=== PATIENT | female | born 1975 | race Caucasian/White ===

== ENCOUNTER 2019-12-12 07:53 | Outpatient (CLI) | payer BC, SELFPAY ==
--- NOTE | ~2019-12-12 | MM_ITS ---
EXAMINATION: MM screening [facility] BI w maryjane HISTORY: Screening mammogram TECHNIQUE: Craniocaudal and mediolateral oblique 3-D tomosynthesis images were obtained and synthetic 2-D images were generated. CAD analysis was submitted and interpreted. COMPARISON: 10/26/2018, 10/16/2017, 05/01/2017, 10/21/2016, 10/11/2016 BREAST PARENCHYMAL COMPOSITION: The breasts are extremely dense, which lowers the sensitivity of mamm ography. FINDINGS: Scattered benign-appearing calcifications are present. There is no evidence of suspicious m ass, calcification, or architectural distortion to suggest malignancy in either breast. There has bee n no suspicious interval change. IMPRESSION: 1. No mammographic evidence of malignancy. 2. Recommend routine screening mammography in one year. Two Reviewed, dictated and finalized at location A.
== END 2019-12-12 07:54 | disposition home or self-care (01) ==
LOC: ANHIMG 07:57
PROVIDERS: PCP Family Medicine Adolescent Medicine; Visit Provider Obstetrics & Gynecology
DX: Z12.31 Encounter for screening mammogram for malignant neoplasm of breast (principal)
CPT/HCPCS: 77063; 77067

== ENCOUNTER → 2020-08-26 11:04 | Outpatient (CLI) | payer BC, SELFPAY ==
--- NOTE | ~2020-08-26 | XR_ITS ---
EXAMINATION: XR ribs LT 2V w CXR 2V INDICATION: Left rib pain TECHNIQUE: PA and lateral views of the chest and 3 views of the left ribs were obtained. COMPARISON: 09/19/2010 FINDINGS: The lungs are free of acute opacities. There is no pleural effusion or pneumothorax. The ca rdiomediastinal silhouette is normal. The visualized bones and soft tissues are unremarkable. No disp laced rib fracture is identified. IMPRESSION: 1. No acute cardiopulmonary abnormality or evidence of displaced rib fracture. Reviewed, dictated and finalized at location A. [employer]
== END ==
PROVIDERS: PCP Family Medicine Adolescent Medicine; Visit Provider Physician Assistant
DX: R07.81 Pleurodynia (principal)
CPT/HCPCS: 71046; 71100

== ENCOUNTER → 2021-02-10 11:28 | Outpatient (CLI) | payer BC, SELFPAY ==
--- NOTE | ~2021-02-10 | MM_ITS ---
EXAMINATION: MM screening [facility] BI w maryjane HISTORY: Screening mammogram TECHNIQUE: Craniocaudal and mediolateral oblique 3-D tomosynthesis images were obtained and synthetic 2-D images were generated. CAD analysis was submitted and interpreted. COMPARISON: 12/12/2019, 10/26/2018, 10/16/2017 bilateral digital screening mammogram examinations BREAST PARENCHYMAL COMPOSITION: The breasts are extremely dense, which lowers the sensitivity of mamm ography. FINDINGS: Magnification views are recommended for subtle microcalcifications noted deep in the upper central right breast. Otherwise there is no evidence of suspicious mass, calcification, or architectural distortion to sugg est malignancy in either breast. There has been no other suspicious interval change. IMPRESSION: 1. Indeterminate microcalcifications in the posterior upper right breast 2. Diagnostic right mammogram with magnification views is recommended BI-RADS Category 0: Incomplete: Needs additional imaging evaluation. Reviewed, dictated and finalized at location A.
== END ==
PROVIDERS: PCP Family Medicine Adolescent Medicine; Visit Provider Student in an Organized Health Care Education/Training Program
DX: Z12.31 Encounter for screening mammogram for malignant neoplasm of breast (principal); R92.8 Other abnormal and inconclusive findings on diagnostic imaging of breast
CPT/HCPCS: 77063; 77067

== ENCOUNTER 2021-03-09 13:14 | Outpatient (CLI) | payer BC, SELFPAY ==
--- NOTE | ~2021-03-09 | MM_ITS ---
EXAMINATION: MM diagnostic mammo unilat RT HISTORY: Indeterminate right breast calcifications TECHNIQUE: Magnification views of the right breast were performed. CAD analysis was submitted and int erpreted. COMPARISON: Prior mammograms dating back to 10/21/2016 BREAST PARENCHYMAL COMPOSITION: The breasts are extremely dense, which lowers the sensitivity of mamm ography. FINDINGS: There are grouped round calcifications in the posterior third of the upper breast at the 12 :00 location 8 cm from the nipple. With magnification views there has been no suspicious interval simon nge when compared to prior mammograms. IMPRESSION: 1. No mammographic evidence of malignancy. 2. Recommend routine screening mammography in one year. BI-RADS Category 2: Benign finding(s). Reviewed, dictated and finalized at location A.
== END 2021-03-09 13:15 | disposition home or self-care (01) ==
LOC: ANHIMG 13:17
PROVIDERS: PCP Family Medicine Adolescent Medicine; Visit Provider Student in an Organized Health Care Education/Training Program
DX: R92.8 Other abnormal and inconclusive findings on diagnostic imaging of breast (principal)
CPT/HCPCS: 77065

== ENCOUNTER 2021-04-28 18:27 | Emergency (ER) | payer BC, SELFPAY ==
--- NOTE | ~2021-04-28 | XR_ITS ---
EXAMINATION: XR elbow RT min 3V DATE: 04/28/2021 18:56 INDICATION: Right elbow injury and pain. TECHNIQUE: 4 views of right elbow were obtained. COMPARISON: None. FINDINGS: Bone alignment is normal. There is a fracture of coronoid process of proximal ulna in near- anatomic alignment. Joint spaces are normal. There is an elbow joint effusion. IMPRESSION: 1. Nondisplaced fracture of coronoid process of proximal ulna. 2. Elbow joint effusion. Reviewed, dictated and finalized at location A.
[2021-04-28 18:36] VITALS: BP 121/84; PULSE 66; RESP 14; TEMP 36.4; O2SAT 99
--- NOTE | 2021-04-28 20:33 | ED.UPPEXIN ---
HPI - Extremity Injury (Upper) General Chief Complaint: Extremity Injury, Upper Stated Complaint: R ELBOW PAIN S/P FALL Time Seen by Provider: 04/28/21 20:33 Source: patient Mode of arrival: ambulatory Limitations: no limitations History of Present Illness HPI narrative: The patient is a 45 yo female who presents for evaluation following a ground level fall. Patient fell backwards onto her right elbow. Pt with right shoulder and right hip pain. Also with moderate right elbow pain. Exacerbated with movement. No head trauma or LOC. No abrasion or laceration. Patient has been ambulatory. No numbness or weakness. Related Data Home Medications Medication Instructions Recorded Confirmed biotin 5 mg capsule 5 mg PO DAILY 05/22/20 calcium carbonate 500 mg calcium 500 mg PO DAILY 05/22/20 (1,250 mg) chewable tablet pantoprazole 20 mg tablet,delayed 20 mg PO QAM 05/22/20 release trazodone 50 mg tablet 50 mg PO BID 05/22/20 Allergies Allergy/AdvReac Type Severity Reaction Status Date / Time Penicillins Allergy Mild Hives Verified 04/28/21 20:33 Review of Systems Review of Systems: CONSTITUTIONAL: Denies fever CARDIOVASCULAR: Denies chest pain RESPIRATORY: Denies cough or dyspnea. GASTROINTESTINAL: Denies abdominal pain SKIN: Denies rash MUSCULOSKELETAL: Denies back pain, reports right elbow pain, right shoulder pain, right hip pain NEUROLOGIC: Denies headache PMFSH Past Medical History Medical History Acid reflux Anxiety Endometriosis Irritable bowel Vaginal delivery x 2 Surgical History Surgical History H/O exploratory laparotomy History of abdominal hysterectomy [place] teeth removed Family History Family History Grandparent Blood clot in vein Cerebrovascular accident Diabetes mellitus Mother Hypertension Diabetes mellitus Father Diabetes mellitus Sibling Sarcoma of pelvis Other Acute myocardial infarction Social History Social History Smoking status: Former smoker Alcohol intake: current Substance use: never Exam Narrative: GENERAL: Awake, alert, conversant HEAD: Normocephalic, atraumatic. EYES: PERRLA and EOMI. ENT: Nares clear, no rhinorrhea or epistaxis. Mucous membranes moist. NECK: Supple. CHEST: No respiratory distress, breathing even and non labored HEART: Regular rate, sinus rhythm ABDOMEN:Non distended, non tender EXTREMITIES: Right shoulder: Full ROM of the right shoulder. Decreased ROM at the right elbow. Normal ROM at the right wrist. Intact sensation m/u/r nerve distribution. Radial pulse 2+. No significant edema or ecchymoses. SKIN: Warm, dry, no rash. NEURO:No focal deficits. Alert and oriented x3 Course Vital Signs Vital signs: Vital Signs Temperature 36.4 C 04/28/21 18:36 Pulse Rate 66 04/28/21 18:36 Respiratory Rate 14 04/28/21 18:36 Blood Pressure 121/84 04/28/21 18:36 Pulse Oximetry 99 04/28/21 18:36 Temperature 36.6 C 04/28/21 20:39 Pulse Rate 69 04/28/21 20:39 Respiratory Rate 18 04/28/21 20:39 Blood Pressure 144/90 H 04/28/21 20:39 Pulse Oximetry 100 04/28/21 20:39 Procedures Orthopedic Splinting/Casting Injury #1: Splinting/Casting Date: 04/28/21 Splinting/Casting Time: 21:50 Side: right Upper Extremity Injury Location: elbow Upper Extremity Immobilizer: sling/shoulder immobilizer and posterior splint Pre-Procedure Neuro Vascular Exam: normal Post-Procedure Neuro Vascular Exam: normal MDM - Extremity Injury (Upper) MDM Narrative Medical decision making narrative: Patient presenting for evaluation of ground-level fall, right elbow pain. Patient neurovascularly intact. X-ray reveals nondisplaced fracture of the right coronoid process of
[2021-04-28 20:39] VITALS: BP 144/90; PULSE 69; RESP 18; TEMP 36.6; O2SAT 100
--- NOTE | 2021-04-28 20:55 | PC.NURSE ---
XRAY informed me that patient refused hip and shoulder xray. Med Student Ravi christian
[2021-04-28 22:01] VITALS: BP 122/82; PULSE 67; RESP 15; TEMP 37.2; O2SAT 99
== END 2021-04-28 22:00 | disposition home or self-care (01) ==
PROVIDERS: Emergency Provider Emergency Medicine; PCP Family Medicine Adolescent Medicine
DX: S52.044A Nondisplaced fracture of coronoid process of right ulna, initial encounter for closed fracture (principal); K21.9 Gastro-esophageal reflux disease without esophagitis; N80.9 Endometriosis, unspecified; K58.9 Irritable bowel syndrome, unspecified; Z87.891 Personal history of nicotine dependence; W18.30XA Fall on same level, unspecified, initial encounter
CPT/HCPCS: 29105; 73080; 99284; A4565

== ENCOUNTER 2021-09-24 12:40 | Outpatient (CLI) | payer BC, SELFPAY ==
--- NOTE | ~2021-09-24 | MR_ITS ---
EXAMINATION: MR shoulder LT wo con DATE: 09/24/2021 13:44 INDICATION: Left shoulder pain TECHNIQUE: Magnetic resonance imaging (MRI) of the left shoulder was performed without intravenous co ntrast. Sequences included axial PD-weighted FS FSE, coronal oblique PD-weighted FS FSE, coronal obli que T2-weighted FS FSE, sagittal PD-weighted FS FSE, and sagittal T1-weighted SE. COMPARISON: Left shoulder radiographs dated 07/07/2021 FINDINGS: Coracoacromial arch: The acromion undersurface is curved in morphology (type II). The coracoacromial ligament is normal. M inimal acromioclavicular osteoarthritis. Rotator cuff: The supraspinatus, infraspinatus and teres minor tendons are normal. The subscapularis tendon is norm al. Normal rotator cuff muscle bulk and signal. Biceps tendon, glenoid labrum and glenohumeral cartilage: Long head of the biceps tendon is normal. There is an oblique tear extending across the 4:00 position of the anterior glenoid labrum best appreciated on sagittal series 6, image 14 and axial series 2, i mages 12 and 13. Glenohumeral cartilage is normal. Fluid: Physiologic amount of fluid in the glenohumeral joint and biceps tendon sheath. No loose osteochondr al bodies. No abnormal fluid signal in the subacromial/subdeltoid bursa to suggest bursitis. Bones/other: No fracture or pathologic marrow replacing process. There is thickening and mild increased signal of the anterior inferior glenohumeral ligament and glenohumeral capsule at the axillary recess. This can be seen with either adhesive capsulitis which is a clinical diagnosis or scarring related to prior p artial tear. IMPRESSION: 1. Tear at the 4:00 position of the anterior glenoid labrum. 2. Thickening of the anterior-inferior glenohumeral ligament and glenohumeral capsule at the axillary recess which could be related to scarring related to chronic partial tear but could also be seen in the setting of adhesive capsulitis which is a clinical diagnosis. Reviewed, dictated and finalized at location A. [employer] IMPRESSION: 1. Tear at the 4:00 position of the anterior glenoid labrum. 2. Thickening of the anterior-inferior glenohumeral ligament and glenohumeral c apsule at the axillary recess which could be related to scarring related to chr onic partial tear but could also be seen in the setting of adhesive capsulitis which is a clinical diagnosis.
--- NOTE | ~2021-09-24 | US_ITS ---
EXAMINATION: US pelvic complete EXAM DATE: 09/24/2021 14:01 INDICATION: Pelvic pain . Hysterectomy. TECHNIQUE: Pelvic transabdominal sonogram was performed. There are multiple grayscale and Doppler im ages available for interpretation. There is no prior study for comparison. FINDINGS: Uterus not identified, reportedly patient is status post hysterectomy. No pelvic mass ident ified. Right ovary is identified and morphologically normal measuring 1.6 x 1.4 x 1.3 cm. No evidence of free pelvic fluid. IMPRESSION: 1. Unremarkable right ovary. Reviewed, dictated and finalized at location A. ET [employer]
== END 2021-09-24 12:41 | disposition home or self-care (01) ==
PROVIDERS: PCP Family Medicine Adolescent Medicine; Visit Provider Family Medicine Adolescent Medicine
DX: M25.512 Pain in left shoulder (principal); R10.2 Pelvic and perineal pain; S43.492A Other sprain of left shoulder joint, initial encounter
CPT/HCPCS: 73221; 76856

== ENCOUNTER 2022-01-14 00:55 | Day surgery (SDC) | payer BC, SELFPAY ==
[2022-01-14 08:40] VITALS: BP 115/85; PULSE 107; RESP 18; TEMP 36.8; O2SAT 100; BMI 21.7
[2022-01-14] MEDS: LACTATED RINGERS 1,000 ML 150 ML IV CONT (08:52)
--- NOTE | 2022-01-14 09:10 | WPDANESEPPF ---
Anes - Initial Pre Proc Eval Procedure: Operation Date: 01/14/22 09:30 Proposed Procedures p Esophagogastroduodenoscopy & Colonoscopy - Heber Long MD Date/Time: 01/14/22 09:10 Surgeon: Heber Long MD Pre Op Diagnosis: GERD, change in bowel habits Patient Data Age: 46 Gender: F Height: 1.57 m Weight: 54 kg Last Vital Signs Temp 98.2 F 01/14/22 08:40 Pulse 107 H 01/14/22 08:40 Resp 18 01/14/22 08:40 BP 115/85 01/14/22 08:40 Pulse Ox 100 01/14/22 08:40 O2 Del Method Room Air 01/14/22 08:40 Allergies Allergy/AdvReac Type Severity Reaction Status Date / Time Penicillins Allergy Mild Hives Verified 12/30/21 14:16 Home Medications Medication Instructions Recorded Confirmed Type buspirone 10 mg tablet 10 mg PO BID PRN anxiety #60 tabs 11/18/21 12/30/21 Rx trazodone 50 mg tablet 50 mg PO QHS #30 tabs 11/29/21 12/30/21 Rx sodium sul 1.479 gram-potas ch See Rx Instructions PO PER PKG DIR 12/10/21 12/30/21 Rx 0.188 gram-magnes sul 0.225 gram #24 tabs tablet (Sutab) pantoprazole 40 mg tablet,delayed 40 mg PO DAILY 12/30/21 12/30/21 History release Patient hx anesthesia problems: none Family hx anesthesia problems: none Results Review: All pre-operative results and documents have been reviewed as part of the pre-operative evaluation. [facility] Past Medical History Medical History (Updated 12/09/21 @ 13:33 by Brenda Osuna APRN) Acid reflux Anxiety Endometriosis Generalized abdominal pain Irritable bowel Left shoulder pain Normal colonoscopy 10/28 Sleep disorder Subacromial bursitis of left shoulder joint Superior glenoid labrum lesion of left shoulder, initial encounter Tendonitis of left rotator cuff Vaginal delivery x 2 Surgical History Surgical History H/O exploratory laparotomy History of abdominal hysterectomy with left oophorectomy [place] teeth removed Family History Family History Grandparent Blood clot in vein Cerebrovascular accident Diabetes mellitus Mother Hypertension Diabetes mellitus Hypothyroidism Father Diabetes mellitus Sibling Sarcoma of pelvis Other Acute myocardial infarction Neuropathy Social History Social History Smoking status: Former smoker Tobacco type: cigarettes Second hand tobacco smoke exposure: No Alcohol intake: current Drinks per week: 1 Substance use: never Substance use type: does not use Living arrangements: with family 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 [employer] Gender identity (if verbalized by the patient): Female Sexual Orientation (if Verbalized by the Patient): Straight or Heterosexual Spiritual care concerns: No Agree to blood products: Yes Anes - Eval Final PreProcedure Day of Procedure 01/14/22 09:10 Patient weight: normal Heart: regular rate and rhythm Lungs: clear to auscultation Airway: Mallampati scale class II Neurological: alert and oriented Last oral intake: >/= 8 hours ASA classification: II Emergent: no Anesthetic plan: proceed Anesthesia type and monitoring: general GIVS and standard monitoring Results Review: All pre-operative results and documents have been reviewed as part of the pre-operative evaluation. Informed Consent: The patient's anesthetic plan and its attendant risks and benefits were discussed with the patient/family/POA. Questions were solicited and answers provided to the satisfaction of the patient/family/POA.
--- NOTE | 2022-01-14 09:22 | PM.IMHP ---
H&P: HPI History of Present Illness Date/Time: 01/14/22 09:22 Chief Complaint: Dyspepsia and change in bowel habits Narrative: this is a 46-year-old white female patient who presents for EGD and colonoscopy. Patient reports a emt intermediate history of acid reflux. Patient reports her symptoms of bubles in her chest. She complains indigestion after dietary indiscretion. She notes this with many different types of food including Custard, red sauce, popcorn etc.. Patient also notices some irregular bowel habits. Usually after drinking. She states her family history is that her mother had a stomach tumor, . patient presents today for colonoscopy an EGD to assess more thoroughly. Recently seen by the GI office endoscopy requested. Patient has been maintained on pantoprazole with no certain response to symptoms. Review of Systems Review of Systems: Review of systems noncontributory. [facility] Past Medical History Medical History (Updated 01/14/22 @ 09:25 by Heber Long MD) Acid reflux Anxiety Endometriosis Generalized abdominal pain Irritable bowel Left shoulder pain Normal colonoscopy 10/28 Sleep disorder Subacromial bursitis of left shoulder joint Superior glenoid labrum lesion of left shoulder, initial encounter Tendonitis of left rotator cuff Vaginal delivery x 2 Surgical History Surgical History H/O exploratory laparotomy History of abdominal hysterectomy with left oophorectomy [place] teeth removed Family History Family History Grandparent Blood clot in vein Cerebrovascular accident Diabetes mellitus Mother Hypertension Diabetes mellitus Hypothyroidism Father Diabetes mellitus Sibling Sarcoma of pelvis Other Acute myocardial infarction Neuropathy Social History Social History Smoking status: Former smoker Tobacco type: cigarettes Second hand tobacco smoke exposure: No Alcohol intake: current Drinks per week: 1 Substance use: never Substance use type: does not use Living arrangements: with family 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 [employer] Gender identity (if verbalized by the patient): Female Sexual Orientation (if Verbalized by the Patient): Straight or Heterosexual Spiritual care concerns: No Agree to blood products: Yes Meds Home Medications and Allergies Home Medications Medication Instructions Recorded Confirmed Type buspirone 10 mg tablet 10 mg PO BID PRN anxiety #60 tabs 11/18/21 12/30/21 Rx trazodone 50 mg tablet 50 mg PO QHS #30 tabs 11/29/21 12/30/21 Rx sodium sul 1.479 gram-potas ch See Rx Instructions PO PER PKG DIR 12/10/21 12/30/21 Rx 0.188 gram-magnes sul 0.225 gram #24 tabs tablet (Sutab) pantoprazole 40 mg tablet,delayed 40 mg PO DAILY 12/30/21 12/30/21 History release Allergies Allergy/AdvReac Type Severity Reaction Status Date / Time Penicillins Allergy Mild Hives Verified 12/30/21 14:16 Vital Signs Vital Signs - 24 hr 01/14/22 08:40 Temperature 98.2 F Pulse Rate 107 H Respiratory Rate 18 Blood Pressure 115/85 Pulse Oximetry 100 Oxygen Delivery Room Air Exam Narrative: Physical exam reveals patient to be alert. Vital signs stable. HEENT exam is unremarkable. Patient is anicteric. Lungs are clear to auscultation and percussion. Heart is without murmur or extra sounds. Abdominal exam bowel sounds present soft nontender with no organomegaly. Digital external rectal exam is normal. Assessment and Plan Assessment and plan (1) Dyspepsia: Code(s): R10.13 - Epigastric pain Status: Acute Assessment and Plan: Patient with dyspepsia may represent acid reflux. It appears she may not be given a good response from pantoprazole. EGD is requested. Plan is for a bland diet further
--- NOTE | 2022-01-14 09:51 | SUR.OPER ---
EGD ENDED AT 945, COLONOSCOPY BEGAN AT 949.
[2022-01-14 10:06] VITALS: BP 98/65; PULSE 84; RESP 25; O2SAT 100
[2022-01-14 10:16] VITALS: BP 97/77; PULSE 75; RESP 18; O2SAT 100
[2022-01-14 10:26] VITALS: BP 118/72; PULSE 67; RESP 19; O2SAT 98
== END 2022-01-14 10:35 | disposition home or self-care (01) ==
PROVIDERS: PCP Family Medicine Adolescent Medicine; Visit Provider Internal Medicine Gastroenterology
PROC: 0DJ08ZZ Inspection of Upper Intestinal Tract, Via Natural or Artificial Opening Endoscopic (ICD-10-PCS; CPT 43235; principal; 2022-01-14 09:30)
DX: R19.7 Diarrhea, unspecified (principal); D12.5 Benign neoplasm of sigmoid colon; R19.4 Change in bowel habit; K64.8 Other hemorrhoids; R10.13 Epigastric pain; K21.9 Gastro-esophageal reflux disease without esophagitis; F41.9 Anxiety disorder, unspecified; N80.9 Endometriosis, unspecified; K58.9 Irritable bowel syndrome, unspecified; G47.9 Sleep disorder, unspecified; M75.52 Bursitis of left shoulder; Z87.891 Personal history of nicotine dependence
CPT/HCPCS: 45385; 45380; 43239; 87081; 88305; J2704; J7120

== ENCOUNTER 2022-03-07 07:01 | Outpatient (CLI) | payer BC, SELFPAY ==
--- NOTE | ~2022-03-07 | MM_ITS ---
EXAMINATION: MM screening [facility] BI w maryjane HISTORY: Screening TECHNIQUE: Craniocaudal and mediolateral oblique 3-D tomosynthesis images were obtained and synthetic 2-D images were generated. CAD analysis was submitted and interpreted. COMPARISON: Comparison to multiple prior studies sequentially, with oldest reviewed study dated 04/16. BREAST PARENCHYMAL COMPOSITION: The breasts are heterogeneously dense, which may obscure small masses FINDINGS: Stable benign-appearing bilateral breast calcifications. There is no evidence of suspicious mass, calcification, or architectural distortion to suggest malignancy in either breast. There has b een no suspicious interval change. IMPRESSION: 1. No mammographic evidence of malignancy. 2. Recommend routine screening mammography in one year. BI-RADS Category 2: Benign finding(s). Reviewed, dictated and finalized at location A.
== END 2022-03-07 07:02 | disposition home or self-care (01) ==
LOC: ANHIMG 07:04
PROVIDERS: PCP Family Medicine Adolescent Medicine; Visit Provider Obstetrics & Gynecology
DX: Z12.31 Encounter for screening mammogram for malignant neoplasm of breast (principal)
CPT/HCPCS: 77063; 77067

== ENCOUNTER 2022-11-07 09:10 | Outpatient (CLI) | payer BC, SELFPAY ==
--- NOTE | ~2022-11-07 | US_ITS ---
EXAMINATION: US right upper quadrant DATE: 11/07/2022 09:47 INDICATION: Right upper quadrant pain TECHNIQUE: Multiple grayscale and Doppler ultrasound images of the abdomen were obtained. COMPARISON: None available FINDINGS: The head and body of the pancreas are normal. The pancreatic tail is obscured by bowel gas. The liver is normal with normal echogenicity and echotexture. No surface nodularity. Normal hepatope ivoyr flow in the main portal vein. The gallbladder is normal with no abnormal wall thickening, pericho lecystic fluid or stones. The normal common bile duct measures 4 mm. There was no sonographic Barnes sign. IMPRESSION: 1. Normal sonographic study of the gallbladder. Reviewed, dictated and finalized at location B.
== END 2022-11-07 09:11 | disposition home or self-care (01) ==
PROVIDERS: PCP Family Medicine Adolescent Medicine; Visit Provider Family Medicine Adolescent Medicine
DX: R10.11 Right upper quadrant pain (principal)
CPT/HCPCS: 76705

== ENCOUNTER 2023-02-08 14:04 | Outpatient (CLI) | payer BC, SELFPAY ==
--- NOTE | 2023-02-14 20:26 | P.PCNHOL_ITS ---
Holter/Event Monitor Holter/Event Monitor Date of procedure: 02/14/23 Holter/Event Procedure: 48 Hr Holter Monitor Diagnosis: Palpitations Indications: 47-year-old female palpitations Image/Tracing Quality: Good Finding: The patient was monitored for 48 hours. The underlying rhythm was sinus with an average heart rate of 78 beats per minute (range 53-145 BPM). Four PVCs were seen. There were 13 PACs, 2 atrial couplets, and 3 runs of SVT the longest of which was 6 beats. There was no atrial fibrillation, ventricular tachycardia, heart block or pauses. The patient is admitted 12 rhythm strips primarily for symptoms of palpitations. These were associated with sinus rhythm with heart rates in the 60s to 80s, and once with sinus tachycardia with a heart rate of 118 ppm. Conclusion: Fairly unremarkable Holter monitor. Rare PVCs, PACs, and 3 brief runs of SVT the longest of which was 6 beats. Patient's symptoms of palpitations were associated with sinus rhythm and sinus tachycardia.
== END 2023-02-08 14:05 | disposition home or self-care (01) ==
PROVIDERS: PCP Family Medicine Adolescent Medicine; Visit Provider Family Medicine Adolescent Medicine
DX: R00.2 Palpitations (principal)
CPT/HCPCS: 93225; 93226

== ENCOUNTER → 2023-05-17 11:48 | Outpatient (CLI) | payer BC, SELFPAY ==
--- NOTE | ~2023-05-17 | MM_ITS ---
EXAMINATION: MM screening [facility] BI w maryjane HISTORY: Screening mammogram TECHNIQUE: Craniocaudal and mediolateral oblique 3-D tomosynthesis images were obtained and synthetic 2-D images were generated. CAD analysis was submitted and interpreted. COMPARISON: 03/07/2022, 03/09/2021, 02/10/2021 BREAST PARENCHYMAL COMPOSITION: The breasts are heterogeneously dense, which may obscure small masses . FINDINGS: Scattered benign-appearing calcifications are present. No suspicious mass, calcification, o r architectural distortion are identified in either breast to suggest malignancy. There has been no s uspicious interval change. IMPRESSION: 1. No mammographic evidence of malignancy. 2. Recommend routine screening mammography in one year. BI-RADS Category 2: Benign finding(s). Reviewed, dictated and finalized at location A.
== END ==
PROVIDERS: PCP Family Medicine Adolescent Medicine; Visit Provider Obstetrics & Gynecology
DX: Z12.31 Encounter for screening mammogram for malignant neoplasm of breast (principal)
CPT/HCPCS: 77063; 77067

== ENCOUNTER 2023-08-19 07:38 | Outpatient (CLI) | payer BC, SELFPAY ==
[2023-08-19 08:35] LABS: Hematocrit 41.4 % (37.0-47.0); Hemoglobin 12.7 g/dL (12.0-15.0); Mean Corpuscular HGB Conc 30.7 g/dl (32-36); Mean Corpuscular Hemoglobin 29.2 pg (26-34); Mean Corpuscular Volume 95.2 fl (80-100); Mean Platelet Volume 9.4 fl (7.4-10.4); Platelet Count Result 287 k/mm3 (150-375); Red Blood Count 4.35 M/mm3 (4.2-5.4); Red Cell Distribution Width 13.2 % (11.5-14.5); White Blood Count 5.9 K/mm3 (4.5-10.0)
[2023-08-19 08:47] LABS: Alanine Aminotransferase 22 U/L (6-35); Albumin Level 4.2 g/dL (3.5-5.1); Alkaline Phosphatase 74 U/L (38-126); Anion Gap 5 mmol/L (8-16); Aspartate Amino Transferase 24 U/L (14-36); Bilirubin,Total 0.6 mg/dL (0.2-1.3); Blood Urea Nitrogen 18 mg/dL (7-17); Calcium 9.4 mg/dL (8.4-10.2); Carbon Dioxide 26 mmol/L (22-30); Chloride 108 mmol/L (98-107); Cholesterol 208 mg/dL (0-200); Estimated Glomerular Filt Rate > 60; Glucose 98 mg/dL (65-110); HDL Direct 67 mg/dL; Potassium 3.8 mmol/L (3.4-5.0); Sodium 139 mmol/L (137-145); Triglycerides 69 mg/dL (<150)
[2023-08-19 08:57] LABS: LDL Cholesterol Direct 107 mg/dL
[2023-08-19 09:19] LABS: Appearance Urine Cloudy (Clear); Bacteria Urine None Seen /hpf; Bilirubin Urine Negative (Negative); Blood Urine Trace (Negative); Color Urine Yellow (Yellow); Glucose Urine UA Negative (Negative); Ketones Urine Trace mg/dL (Negative); Leukocyte Esterase Ur Negative LEU/UL (Negative); Nitrate Urine Negative (Negative); Protein Urine Negative (Negative); RBC Urine 0-2 /hpf (0-2); Specific Grav Ur 1.025 (1.001-1.035); Squamous Epithelial Cell Urine Few /hpf (Few); Urobilinogen Urine 0.2 mg/dL (<2.0); WBC Urine 0-5 /hpf
[2023-08-19 09:21] LABS: Add Urine Microscopic? YES
[2023-08-19 10:32] LABS: Vitamin D 25 Hydroxy 36.3 ng/mL
== END 2023-08-19 07:39 | disposition home or self-care (01) ==
PROVIDERS: PCP Family Medicine Adolescent Medicine; Visit Provider Registered Nurse
DX: Z79.899 Other long term (current) drug therapy (principal)
CPT/HCPCS: 36415; 80053; 80061; 81001; 82306; 84443; 85027

== ENCOUNTER 2023-10-19 10:40 | Outpatient (CLI) | payer BC, SELFPAY ==
--- NOTE | ~2023-10-19 | US_ITS ---
EXAMINATION: US venous doppler [facility] DATE: 10/19/2023 11:12 INDICATION: Right lower limb pain and swelling TECHNIQUE: Grayscale ultrasound images without and with compression and Doppler ultrasound images of the bilateral lower extremity veins were obtained. COMPARISON: None. FINDINGS: The visualized portions of right common femoral vein, profunda (deep) femoral vein, femoral vein, pop liteal vein, posterior tibial veins, peroneal veins, gastrocnemius vein and greater saphenous vein ou tflow are patent. The visualized portions of left common femoral vein, profunda femoral vein, femoral vein, popliteal v ein, posterior tibial veins, peroneal veins, gastrocnemius vein and greater saphenous vein outflow ar e patent. IMPRESSION: 1. No deep venous thrombosis in either lower limb. Reviewed, dictated and finalized at location A.
== END 2023-10-19 10:41 ==
LOC: MICIMG 10:41
PROVIDERS: PCP Family Medicine Adolescent Medicine
DX: M79.89 Other specified soft tissue disorders (principal)
CPT/HCPCS: 93970

== ENCOUNTER 2024-03-25 10:41 | Outpatient (CLI) | payer BC, SELFPAY ==
--- NOTE | ~2024-03-25 | XR_ITS ---
XR shoulder RT min 2V Ordering provider: Raymond Almanza MD History: . M77.8 - Other enthesopathies, not elsewhere classified . Comparison: None. FINDINGS: BONES: No acute fracture or dislocation. JOINT SPACES: The acromioclavicular joint is normal. The glenohumeral joint is normal. SOFT TISSUES: Normal. IMPRESSION: No acute osseous abnormality right shoulder. Reviewed, dictated and finalized at location A.
== END 2024-03-25 10:42 | disposition home or self-care (01) ==
LOC: MICIMG 10:42
PROVIDERS: PCP Family Medicine Adolescent Medicine; Visit Provider Family Medicine Adolescent Medicine
DX: M77.8 Other enthesopathies, not elsewhere classified (principal)
CPT/HCPCS: 73030

== ENCOUNTER 2024-04-10 09:55 | Outpatient (CLI) | payer BC, SELFPAY ==
--- NOTE | ~2024-04-10 | MR_ITS ---
EXAMINATION: MR shoulder RT wo con DATE: 04/10/2024 10:36 INDICATION: Posterior right shoulder pain when lifting the arm and limited range of motion TECHNIQUE: Magnetic resonance imaging (MRI) of the right shoulder was performed without intravenous c ontrast. Sequences included axial PD-weighted FS FSE, coronal oblique PD-weighted FS FSE, coronal obl ique T2-weighted FS FSE, sagittal PD-weighted FS FSE, and sagittal T1-weighted SE. COMPARISON: Right shoulder radiographs dated 04/04/2024 FINDINGS: Coracoacromial arch: The acromion undersurface is curved in morphology with anterior hook (type III). The coracoacromial l igament is normal. Minimal acromioclavicular osteoarthritis. Rotator cuff: Minimal supraspinatus and displaced tendinopathy without tear. The subscapularis and infraspinatus te ndons are normal. Normal rotator cuff muscle bulk and signal. Biceps tendon, glenoid labrum and glenohumeral cartilage: Long head of the biceps tendon is normal. There is a tear at the base of the 7:00 position of the pos terior inferior glenoid labrum. There is additional linear tear extending into the substance of the 2 :00-3:00 position of the anterior labrum. Glenohumeral cartilage is normal. Fluid: Physiologic amount of fluid in the glenohumeral joint and biceps tendon sheath. No loose osteochondr al bodies. Mild increased fluid signal in the subacromial/subdeltoid bursa consistent with mild bursi tis. Bones/other: Normal marrow signal with no edema, fracture or abnormal marrow replacing process. There is increased soft tissue replacing the normal replacing the normal T1 hyperintense fat signal at the rotator cuff interval which can be a finding of adhesive capsulitis which is a clinical diagnosis. IMPRESSION: 1. Small tears of the anterior and posterior inferior glenoid labrum. 2. Minimal supraspinatus and infraspinatus tendinopathy without tear. 3. Thickened soft tissue at the rotator interval which can be a finding of adhesive capsulitis which is a clinical diagnosis. 4. Mild subacromial/subdeltoid bursitis. Reviewed, dictated and finalized at location A. IMPRESSION: 1. Small tears of the anterior and posterior inferior glenoid labrum. 2. Minimal supraspinatus and infraspinatus tendinopathy without tear. 3. Thickened soft tissue at the rotator interval which can be a finding of adhe sive capsulitis which is a clinical diagnosis. 4. Mild subacromial/subdeltoid bursitis.
== END 2024-04-10 09:56 | disposition home or self-care (01) ==
PROVIDERS: PCP Family Medicine Adolescent Medicine; Visit Provider Family Medicine Adolescent Medicine
DX: M77.8 Other enthesopathies, not elsewhere classified (principal); M75.101 Unspecified rotator cuff tear or rupture of right shoulder, not specified as traumatic; S43.491D Other sprain of right shoulder joint, subsequent encounter; X58.XXXD Exposure to other specified factors, subsequent encounter
CPT/HCPCS: 73221

== ENCOUNTER 2024-07-01 08:55 | Outpatient (CLI) | payer BC, SELFPAY ==
--- NOTE | ~2024-07-01 | MM_ITS ---
EXAMINATION: MM screening daniel BI w maryjane HISTORY: Screening TECHNIQUE: Craniocaudal and mediolateral oblique 3-D tomosynthesis images were obtained and synthetic 2-D images were generated. CAD analysis was submitted and interpreted. COMPARISON: Comparison to multiple prior studies sequentially, with oldest reviewed study dated 10/26. BREAST PARENCHYMAL COMPOSITION: Dense: The breasts are heterogeneously dense, which may obscure small masses FINDINGS: There is no evidence of suspicious mass, calcification, or architectural distortion to sugg est malignancy in either breast. There has been no suspicious interval change. IMPRESSION: 1. No mammographic evidence of malignancy. 2. Recommend routine screening mammography in one year. BI-RADS Category 1: Negative Reviewed, dictated and finalized at location B. P FARM WORKER
--- OUTSIDE RECORDS SUMMARY | 2024-07-07 21:51 | XMS_ITS | Encounter Summary ---
Author Organization [facility] Address [address] [place] [address]. [place] [phone] Care Team Providers Care Wind Turbine Mechanical Engineer Name Role Phone Unavailable Primary Care Provider Unavailabl e Encounter Details Date Type Department Care Team (Latest Contact Info) Description 09/19/[address] [facility] Social History Tobacco Use Types Packs/Day Years Used Date Smoking Tobacco: Never Assessed Comments Unknown Sex and Gender Information Value Date Recorded Sex Assigned at Not on file Legal Sex Female 6:49 PM CDT Gender Identity Not on file Sexual Orientation Not on file documented as of this encounter Plan of Treatment Not on file documented as of this encounter Visit Diagnoses Not on filedocumented in this encounter
--- OUTSIDE RECORDS SUMMARY | 2024-07-07 21:51 | XMS_ITS | Encounter Summary ---
Author Organization [facility] Address [address] [place] [address]. [place], [place] [id number] [place] [address] Care Team Providers Care Official Greeter Name Role Phone Unavailable Primary Care Provider Unavailabl e Encounter Details Date Type Department Care Team (Latest Contact Info) Description 08/01/2013 Abstract [facility] Medical Group Social History Tobacco Use Types Packs/Day Years Used Date Smoking Tobacco: Never Assessed Comments Unknown Sex and Gender Information Value Date Recorded Sex Assigned at Not on file Legal Sex Female 6:49 PM CDT Gender Identity Not on file Sexual Orientation Not on file documented as of this encounter Progress Notes * Hernandez Hart Md, MD - 08/01/2013 2:56 PM CST Message Recorded as Task Date: 07/31/2013 01:02 PM, Created By: Jessie Lowry Task Name: Medical Complaint Callback Assigned To: [facility] Team Gunjan Regarding Patient: Nila Valentino, Status: Active Comment: Jessie Lowry - 31 Jul 2013 1:02 PM TASK CREATED Caller: Self; Medical Complaint; (Day) Pt c/o urinary frequency, blood in urine, pressure when urinating since 10AM today. No history of UTI's. What should she do? Call pt. Harvey Hollins - 31 Jul 2013 1:56 PM TASK REASSIGNED: Previously Assigned To Harvey Hollins DS bid x 7 Jose Quinones - 31 Jul 2013 1:58 PM TASK EDITED lmtc- need pharmacy Message: patient already went to another physician and got antibiotics Signatures Electronically signed by : Sarah Beebe, ; Aug 01 2013 2:57PM (Author) ICAN HISTORY PROFESSOR documented in this encounter Plan of Treatment Not on file documented as of this encounter Visit Diagnoses Not on filedocumented in this encounter
--- OUTSIDE RECORDS SUMMARY | 2024-07-07 21:51 | XMS_ITS | Encounter Summary ---
Author Organization [facility] Address [address] [place] [address]. [place] [phone] Care Team Providers Care Frame Operator Name Role Phone Unavailable Primary Care Provider Unavailabl e Encounter Details Date Type Department Care Team (Latest Contact Info) Description 09/20/2011 Abstract [facility] Medical Group Social History Tobacco [...]
--- OUTSIDE RECORDS SUMMARY | 2024-07-07 21:51 | XMS_ITS | Encounter Summary ---
Author Organization [facility] Address [address] [place] [address]. [place], [place] [address] [place] [address] Care Team Providers Care Court Clerk Name Role Phone Unavailable Primary Care Provider Unavailabl e Encounter Details Date Type Department Care Team (Latest Contact Info) Description 02/19/2013 Abstract [facility] Medical Group Harvey Hollins MD [facility] [place], [place] [phone] Social History Tobacco Use Types Packs/Day Years Used Date Smoking Tobacco: Never Assessed Comments Unknown Sex and Gender Information Value Date Recorded Sex Assigned at Not on file Legal Sex Female 6:49 PM CDT Gender Identity Not on file Sexual Orientation Not on file documented as of this encounter Plan of Treatment Not on file documented as of this encounter Procedures Procedure Name Priority Date/Time Associated Diagnosis Comments SMEAR, STAIN, WET PREP Routine 02/19/2013 12:00 AM CDT documented in this encounter Results * (ABNORMAL) SMEAR, STAIN, WET PREP (02/19/2013 12:00 AM CDT) WBC 0-5 0 - 5 /hpf [facility] TO EPIC CONVERSION RBC 0-3 0 - 3 /hpf [facility] TO EPIC CONVERSION EPI/HPF >10(A) 0 - 10 /hpf [facility] TO EPIC CONVERSION RENAL EPI [facility] T O EPIC CONVERSION OTHER CASTS (U) MED[facility] ROUP TO EPIC CONVERSION OTHER CASTS (U) [facility] ROUP TO EPIC CONVERSION CRYSTALS (U) Present(A) N/A [facility]O UP TO EPIC CONVERSION SPECIMEN TYPE Calcium Oxalate N/A [facility] TO EPIC CONVERSION MUCUS Present Not Estab. [facility] TO EPIC CONVERSION BACTERIA (U) Few None seen/Few [facility] TO EPIC CONVERSION YEAST [facility] T O EPIC CONVERSION TRICHOMONAS [facility] TO EPIC CONVERSION COMMENT [facility] T O EPIC CONVERSION 02/19/2013 02/19/2013 Narrative [facility] TO EPIC CONVERSION - 02/19/2013 9:29 PM CDT Result Communication: No patient communication needed at this time us Harvey Hollins MD MICROBIOLOGY - GENERAL ORDERAB LES Final Result [facility] TO EPIC CONVERSION documented in this encounter Visit Diagnoses Not on filedocumented in this encounter
--- OUTSIDE RECORDS SUMMARY | 2024-07-07 21:51 | XMS_ITS | Encounter Summary ---
Author Organization [facility] Address Counts include 234 beds at the [facility] [place] [address] [place] [address] Care Team Providers Care Drug Clerk Name Role Phone Unavailable Primary Care Provider Unavailabl e Encounter Details Date Type Department Care Team (Late st Contact Info) Description 11/25/2013 Abstract [facility] Medical Group Family & Internal Medicine [address] [phone] [place] [address] [place] [address] Social History Tobacco Use Types Packs/Day Years Used Date Smoking Tobacco: Never Assessed Comments Unknown Sex and Gender Information Value Date Recorded Sex Assigned at Not on file Legal Sex Female 6:49 PM CDT Gender Identity Not on file Sexual Orientation Not on file documented as of this encounter Last Filed Vital Signs Vital Sign Reading Time Taken Comments Blood Pressure 142/88 11/25/2013 11:35 AM CDT Pulse 105 11/25/2013 11:35 AM CDT Temperature - - Respiratory Rate - - Oxygen Saturation - - Inhaled Oxygen Concentration - - Weight - - Height - - Body Mass Index - - documented in this encounter Progress Notes * Harvey Hollins MD - 11/25/2013 11:00 AM CDT Reason For Visit Reason For Visit: Acute Visit Chief Complaint Chief Complaint Free Text: c/o feels enlarged lymph node on right side of neck, a little tender discuss u/s lymph node done in June History of Present Illness HPI Free Text: She has noticed a spot in her neck that is very tender. She is wondering if this is a lymph node orif there is something else going on with her neck. The area is tender to palpation. She has not noticed any other swollen lymph nodes in her neck. She denies any weight loss or weight gain. She has not had any fevers or night sweats. She does feel that the area has decreased in size over the past co uple of days, and is not as tender as it was earlier in the week. Review of Systems Focused-Female: Constitutional: Normal. ENT: normal. Cardiovascular: Normal. Respiratory: Normal. Gastrointestinal: Normal. Genitourinary: Normal. Integumentary: Normal. Musculoskeletal: Normal. Neurological: Normal. Psychiatric: Normal. Active Problems 1. Esophageal reflux (530.81) (K21.9) 2. Insomnia (780.52) (G47.00) 3. Lymphadenopathy (785.6) (R59.9) Surgical History 1. History of Hysterectomy 2. History of Intestinal Laparoscopy Family History Mother 1. Family history of Benign Essential Hypertension 2. Family history of Diabetes Mellitus (V18.0) 3. Family history of Hypothyroidism Brother 4. Family history of Cancer Social History ?? Never a smoker Current Meds 1. Omeprazole 20 MG Oral Capsule Delayed Release; TAKE 1 CAPSULE DAILY; Therapy: [id number] to (Evaluate:[id number]) Recorded 2. Zolpidem Tartrate 10 MG Oral Tablet; TAKE 1 TABLET AT BEDTIME NEEDED; Therapy: [id number] to Recorded Allergies 1. Penicillins Vitals Vital Signs [Data Includes: Current Encounter] Recorded by : Sarah Beebe at [id number] 11:35AM Temperature 97 F Heart Rate 105 Respiration 16 Systolic 142 Diastolic 88 Physical Exam Constitutional General appearance: No acute distress, well appearing and well nourished. Ears, Nose, Mouth, and Throat External inspection of ears and nose: Normal. Otoscopic examination: Tympanic membranes translucent with normal light reflex. Canals patent without erythema. Hearing: Normal. Nasal mucosa, septum, and turbinates: Normal without edema or erythema. Lips, teeth, and gums: Normal, good dentition. Oropharynx: Normal with no erythema, edema, exudate or lesions. Neck Neck: Supple, symmetric, trachea midline, no masses. Thyroid: Normal, no thyromegaly. Pulmonary Palpation of chest: Normal. Auscultation of lungs: Clear to auscultation. Lymphatic Palpation of lymph nodes in neck: No lymphadenopathy. Palpation of lymph nodes in axillae: No lymphadenopathy. Psychiatric Mood and affect: Normal. Assessment 1. Lymphadenopathy (785.6) (R59.9) Plan 1. Call if: You lose weight without trying to. Status: Complete Done: [id number] 06:38PM Ordered; For: Lymphadenopathy; Ordered By: Harvey Hollins 2. Call if: You wake out of sleep because you have been sweating heavily. Status: Complete Done: [id number] 06:38PM Ordered; For: Lymphadenopathy; Ordered By: Harvey Hollins Plan Free Text: Time spent with patient >15 minutes in direct patient care. Signatures Electronically signed by : Harvey Hollins M.D.; Nov 26 2013 6:40PM AUDIO INSTALLER (Author) O INSTALLER documented in this encounter Plan of Treatment Not on file documented as of this encounter Visit Diagnoses Not on filedocumented in this encounter
--- OUTSIDE RECORDS SUMMARY | 2024-07-07 21:51 | XMS_ITS | Encounter Summary ---
Author Organization [facility] Address [address] [place] [address]. [place] [phone] Care Team Providers Care Electrician Refinery Name Role Phone Unavailable Primary Care Provider Unavailabl e Encounter Details Date Type Department Care Team (Latest Contact Info) Description 10/17/2011 Abstract [facility] Medical Group Social History Tobacco Use Types [...]
--- OUTSIDE RECORDS SUMMARY | 2024-07-07 21:51 | XMS_ITS | Encounter Summary ---
Author Organization [facility] Address [address] [place] [address]. [place] [phone] Care Team Providers Care Dialysis Nurse Name Role Phone Unavailable Primary Care Provider Unavailabl e Encounter Details Date Type Department Care Team (Latest Contact Info) Description 04/19/2013 Abstract [facility] Medical Group Social History Tobacco Use [...]
--- OUTSIDE RECORDS SUMMARY | 2024-07-07 21:51 | XMS_ITS | Encounter Summary ---
Author Organization [facility] Address [address] [place] [address]. [place] [phone] Care Team Providers Care Commercial Real Estate Assistant Name Role Phone Unavailable Primary Care Provider Unavailabl e Encounter Details Date Type Department Care Team (Latest Contact Info) Description 11/14/2011 Abstract [facility] Medical [...]
--- OUTSIDE RECORDS SUMMARY | 2024-07-07 21:51 | XMS_ITS | Encounter Summary ---
Author Organization [facility] Address [address] [place] [address]. [place] [phone] Care Team Providers Care Custom Shoemaker Name Role Phone Unavailable Primary Care Provider Unavailabl e Encounter Details Date Type Department Care Team (Latest Contact Info) Description 06/25/2014 Abstract [facility] Medical Group Social History Tobacco Use [...]
--- OUTSIDE RECORDS SUMMARY | 2024-07-07 21:51 | XMS_ITS | Encounter Summary ---
Author Organization [facility] Address [address] [place] [address]. [place], [place] [address] [place] [address] Care Team Providers Care Damper Fitter Name Role Phone Unavailable Primary Care Provider Unavailabl e Encounter Details Date Type Department Care Team (Latest Contact Info) Description 02/18/2013 Abstract [facility] Medical Group Social History Tobacco Use Types Packs/Day Years Used Date Smoking Tobacco: Never Assessed Comments Unknown Sex and Gender Information Value Date Recorded Sex Assigned at Not on file Legal Sex Female 6:49 PM CDT Gender Identity Not on file Sexual Orientation Not on file documented as of this encounter Progress Notes * Harvey Hollins MD - 02/18/2013 2:52 PM CDT Message Recorded as Task Date: 02/18/2013 09:45 AM, Created By: Jessie Lowry Task Name: Medical Complaint Callback Assigned To: [facility] Team Gunjan Regarding Patient: Nila Valentino, Status: Active Comment: Jessie Lowry - 18 Feb 2013 9:45 AM TASK CREATED Caller: Self; Medical Complaint; (Day); Pt is requesting an order for labwork, been over a yr. Her brother had cancer and she is worried, been having swollen glands in underarm area that come and go. Do you recommend OV first or ? Call daytime # Harvey Hollins - 18 Feb 2013 12:47 PM TASK REASSIGNED: Previously Assigned To Harvey Hollins CBC, CMP, Lipids, TSH, UA Message: patient will come to office for labs Plan 1. LC-TSH [id number] Requested for: [id number] 2. LC-Urine with reflex to Culture, Routine [id number] Requested for: [id number] 3. LC-CBC With Differential/Platelet [id number] Requested for: [id number] 4. LC-Comp. Metabolic Panel ( 14 ) [id number] Requested for: [id number] 5. LC-Lipid Panel [id number] Requested for: [id number] Signatures Electronically signed by : Sarah Beebe, ; Feb 18 2013 2:54PM (Author) CAL OFFICE SUPERVISOR documented in this encounter Plan of Treatment Not on file documented as of this encounter Procedures Procedure Name Priority Date/Time Associated Diagnosis Comments URINALYSIS WI REFLEX TO CULTURE Routine 02/19/2013 12:00 AM CDT COMPREHENSIVE METABOLIC PANEL Routine 02/19/2013 12:00 AM CDT LIPID PANEL Routine 02/19/2013 12:00 AM CDT CBC W/DIFF AUTOMATED Routine 02/19/2013 12:00 AM CDT THYROID STIM HORMONE TSH Routine 02/19/2013 12:00 AM CDT documented in this encounter Results * THYROID STIM HORMONE, TSH (02/19/2013 12:00 AM CDT) TSH 4.420 0.450 - 4.500 uIU/mL [facility] TO EPIC CONVERSION 02/19/2013 02/19/2013 Narrative [facility] TO EPIC CONVERSION - 02/19/2013 9:29 PM CDT Result Communication: No patient communication needed at this time us Harvey Hollins MD LABORATORY Final Result [facility] TO EPIC CONVERSION * CBC W/DIFF AUTOMATED (02/19/2013 12:00 AM CDT) WBC 6.1 4.0 - 10.5 x10E3/uL [facility] TO EPIC CONVERSION RBC 4.29 3.77 - 5.28 x10E6/uL [facility] TO EPIC CONVERSION HEMOGLOBIN MIXED VENOUS 12.7 11.1 - 15.9 g/dL [facility] TO EPIC CONVERSION HCT 39.1 34.0 - 46.6 % [facility] TO EPIC CONVERSION MCV 91 79 - 97 fL [facility] TO EPIC CONVERSION MCH 29.6 26.6 - 33.0 pg [facility] TO EPIC CONVERSION MCHC 32.5 31.5 - 35.7 g/dL [facility] TO EPIC CONVERSION RDW 13.5 12.3 - 15.4 % [facility] TO EPIC CONVERSION PLT 283 140 - 415 x10E3/uL [facility] TO EPIC CONVERSION SEG NEUTROPHILS 53 40 - 74 % MED[facility] ROUP TO EPIC CONVERSION LYMPHOCYTES 34 14 - 46 % [facility] TO EPIC CONVERSION MONOCYTES 9 4 - 13 % [facility] T O EPIC CONVERSION EOSINOPHILS 3 0 - 7 % [facility] TO EPIC CONVERSION BASOPHILS % 1 0 - 3 % [facility] TO EPIC CONVERSION IMMATURE CELLS [facility] OUP TO EPIC CONVERSION ABS. NEUTROPHILS 3.2 1.8 - 7.8 x10E3/uL [facility] TO EPIC CONVERSION ABS. LYMPHOCYTES 2.1 0.7 - 4.5 x10E3/uL [facility] TO EPIC CONVERSION ABS. MONOCYTES 0.6 0.1 - 1.0 x10E3/uL [facility] TO EPIC CONVERSION ABS. EOSINOPHILS 0.2 0.0 - 0.4 x10E3/uL [facility] TO EPIC CONVERSION ABS. BASOPHILS 0.1 0.0 - 0.2 x10E3/uL [facility] TO EPIC CONVERSION IMMATURE CELLS 0 0 - 2 % [facility] OUP TO EPIC CONVERSION ABS. IMMATURE GRANULOCYTES 0.0 0.0 - 0.1 x10E3/uL [facility] TO EPIC CONVERSION NRBC [facility] T O EPIC CONVERSION CBC COMMENT [facility] TO EPIC CONVERSION 02/19/2013 02/19/2013 Narrative [facility] TO EPIC CONVERSION - 02/19/2013 9:29 PM CDT Result Communication: No patient communication needed at this time Harvey Hollins MD LABORATORY Final Result [facility] TO EPIC CONVERSION * LIPID PANEL (02/19/2013 12:00 AM CDT) [facility] CHOLESTEROL 172 100 - 199 mg/dL [facility] TO EPIC CONVERSION TRIGLYCERIDES 68 0 - 149 mg/dL [facility] TO EPIC CONVERSION HDL 59 >39 mg/dL [facility] T O EPIC CONVERSION Comment: Result Comment: According to ATP-III Guidelines, HDL-C >59 mg/dL is considered a negative risk factor for CHD. VLDL CALCULATION 14 5 - 40 mg/dL [facility] TO EPIC CONVERSION LDL (CALCULATED) 99 0 - 99 mg/dL [facility] TO EPIC CONVERSION COMMENT [facility] T O EPIC CONVERSION 02/19/2013 02/19/2013 Narrative [facility] TO EPIC CONVERSION - 02/19/2013 9:29 PM CDT Result Communication: No patient communication needed at this time Harvey Hollins MD LABORATORY Final Result [facility] TO EPIC CONVERSION * (ABNORMAL) URINALYSIS WI REFLEX TO CULTURE (02/19/2013 12:00 AM CDT) SPECIFIC GRAVITY (U) 1.026 1.005 - 1.030 [facility] TO EPIC CONVERSION PH ARTERIAL 6.0 5.0 - 7.5 [facility] TO EPIC CONVERSION COLOR (U) Yellow Yellow [facility] T O EPIC CONVERSION APPEARANCE SEMEN Cloudy(A) Clear [facility] TO EPIC CONVERSION LEUK ESTERASE (U) Negative Negative [facility] TO EPIC CONVERSION PROTEIN Negative Negative/Tr himanshu [facility] TO EPIC CONVERSION GLUCOSE Negative Negative [facility] T O EPIC CONVERSION REFLEX ADDED [facility] P TO EPIC CONVERSION KETONE (U) Negative Negative [facility] TO EPIC CONVERSION OCCULT BLOOD Negative Negative [facility] P TO EPIC CONVERSION BILIRUBIN (U) Negative Negative [facility] UP TO EPIC CONVERSION UROBILINOGEN 0.2 0.0 - 1.9 mg/dL [facility] TO EPIC CONVERSION NITRITES Negative Negative [facility] T O EPIC CONVERSION MICROSCOPIC DESCRIPTION [facility] TO EPIC CONVERSION Comment:Result Comment: Micr oscopic follows if indicated. MICROSCOPIC DESCRIPTION See below: [facility] TO EPIC CONVERSION COMMENT (U) [facility] TO EPIC CONVERSION Comment:Result Comment: This specimen will not reflex to a Urine Culture. 02/19/2013 02/19/2013 Narrative [facility] TO EPIC CONVERSION - 02/19/2013 9:29 PM CDT Order Comment: This specimen will not reflex to a Urine Culture. Result Communication: No patient communication needed at this time Harvey Hollins MD URINE ORDERABLES Final Result [facility] TO EPIC CONVERSION * (ABNORMAL) COMPREHENSIVE METABOLIC PANEL (02/19/2013 12:00 AM CDT) Pathologist [facility] GLUCOSE 100(H) 65 - 99 mg/dL [facility] TO EPIC CONVERSION BUN 15 6 - 20 mg/dL [facility] TO EPIC CONVERSION CREATININE S/P/B 0.82 0.57 - 1.00 mg/dL [facility] TO EPIC CONVERSION EGFR NON-AFR. AMER. 90 >59 mL/min/1.7 3 [facility] TO EPIC CONVERSION EGFR AFR. AMER. 104 >59 mL/min/1.7 3 [facility] TO EPIC CONVERSION BUN CREATININE RATIO 18 8 - 20 [facility] TO EPIC CONVERSION SODIUM S/P/B 141 134 - 144 mmol/L [facility] TO EPIC CONVERSION POTASSIUM S/P/B 3.7 3.5 - 5.2 mmol/L [facility] TO EPIC CONVERSION CHLORIDE S/P/B 105 97 - 108 mmol/L [facility] TO EPIC CONVERSION TCO2 19 19 - 28 mmol/L [facility] TO EPIC CONVERSION CALCIUM S/P/B 9.7 8.7 - 10.2 mg/dL [facility] TO EPIC CONVERSION PROTEIN 6.9 6.0 - 8.5 g/dL [facility] TO EPIC CONVERSION ALBUMIN S/P/B 4.3 3.5 - 5.5 g/dL [facility] TO EPIC CONVERSION GLOBULIN 2.6 1.5 - 4.5 g/dL [facility] TO EPIC CONVERSION A/G RATIO 1.7 1.1 - 2.5 [facility] T O EPIC CONVERSION BILIRUBIN TOTAL (FLUID) 0.4 0.0 - 1.2 mg/dL [facility] TO EPIC CONVERSION ALKALINE PHOSPHATASE S/P/B 57 42 - 107 IU/L [facility] TO EPIC CONVERSION AST 14 0 - 40 IU/L [facility] TO EPIC CONVERSION ALT 12 0 - 32 IU/L [facility] TO EPIC CONVERSION 02/19/2013 02/19/2013 Narrative [facility] TO EPIC CONVERSION - 02/19/2013 9:29 PM CDT Result Communication: No patient communication needed at this time Harvey Hollins MD LABORATORY Final Result [facility] TO EPIC CONVERSION documented in this encounter Visit Diagnoses Not on filedocumented in this encounter
--- OUTSIDE RECORDS SUMMARY | 2024-07-07 21:51 | XMS_ITS | Encounter Summary ---
Author Organization [facility] Address [address] [place] [address]. [place] [phone] Care Team Providers Care Consolidator Name Role Phone Unavailable Primary Care Provider Unavailabl e Encounter Details Date Type Department Care Team (Late st Contact Info) Description 09/20/[address] [facility] [place] [address] Lolis Sauer MD Social History Tobacco Use Types Packs/Day Years Used Date Smoking Tobacco: Never Assessed Comments Unknown Sex and Gender Information Value Date Recorded Sex Assigned at Not on file Legal Sex Female 6:49 PM CDT Gender Identity Not on file Sexual Orientation Not on file documented as of this encounter Plan of Treatment Not on file documented as of this encounter Visit Diagnoses Diagnosis Anxiety state Anxiety state, unspecified documented in this encounter
--- OUTSIDE RECORDS SUMMARY | 2024-07-07 21:51 | XMS_ITS | Encounter Summary ---
Author Organization [facility] Address [address] [place] [address]. [place] [phone] Care Team Providers Care Interlibrary Loan Services Librarian Name Role Phone Unavailable Primary Care Provider Unavailabl e Encounter Details Date Type Department Care Team (Latest Contact Info) Description 04/17/2012 Abstract [facility] Medical Group Social History Tobacco [...]
--- OUTSIDE RECORDS SUMMARY | 2024-07-07 21:51 | XMS_ITS | Encounter Summary ---
Author Organization [facility] Address [address] [place] [address]. [place] [phone] Care Team Providers Care Fiber Artist Name Role Phone Unavailable Primary Care Provider Unavailabl e Encounter Details Date Type Department Care Team (Latest Contact Info) Description 10/19/2011 Abstract [facility] Medical Group Social History Tobacco Use [...]
--- OUTSIDE RECORDS SUMMARY | 2024-07-07 21:51 | XMS_ITS | Encounter Summary ---
Author Organization [facility] Address [address] [place] [address]. [place] [phone] Care Team Providers Care Director Global Intelligence Name Role Phone Unavailable Primary Care Provider Unavailabl e Encounter Details Date Type Department Care Team (Latest Contact Info) Description 09/18/2010 Abstract [facility] Medical Group Social History Tobacco Use Types [...]
--- OUTSIDE RECORDS SUMMARY | 2024-07-07 21:51 | XMS_ITS | Encounter Summary ---
Author Organization [facility] Address [address] [place] [address]. [place] [phone] Care Team Providers Care Trailer Technician Name Role Phone Unavailable Primary Care Provider Unavailabl e Encounter Details Date Type Department Care Team (Latest Contact Info) Description 07/04/2013 Abstract [facility] Medical Group Social History Tobacco [...]
--- OUTSIDE RECORDS SUMMARY | 2024-07-07 21:51 | XMS_ITS | Encounter Summary ---
Author Organization [facility] Address [address] [place] [address]. [place] [phone] Care Team Providers Care Pipe Fitter Street Service Name Role Phone Unavailable Primary Care Provider Unavailabl e Encounter Details Date Type Department Care Team (Latest Contact Info) Description 11/18/2011 Abstract [facility] Medical Group Social History Tobacco Use Types [...]
--- OUTSIDE RECORDS SUMMARY | 2024-07-07 21:51 | XMS_ITS | Encounter Summary ---
Author Organization [facility] Address [address] [place] [address]. [place], [place] [address] [place] [address] Care Team Providers Care Building Superintendent Name Role Phone Unavailable Primary Care Provider Unavailabl e Encounter Details Date Type Department Care Team (Late st Contact Info) Description 04/18/[address] [facility] Medical [facility] Family & Internal Medicine [address] [phone] Harvey Hollins MD [address] [place] [address] Social History Tobacco Use Types Packs/Day Years Used Date Smoking Tobacco: Never Assessed Comments Unknown Sex and Gender Information Value Date Recorded Sex Assigned at Not on file Legal Sex Female 6:49 PM CDT Gender Identity Not on file Sexual Orientation Not on file documented as of this encounter Last Filed Vital Signs Vital Sign Reading Time Taken Comments Blood Pressure 138/86 04/18/2013 10:26 AM CDT Pulse 107 04/18/2013 10:26 AM CDT Temperature - - Respiratory Rate - - Oxygen Saturation - - Inhaled Oxygen Concentration - - Weight 59.4 kg (131 lb) 04/18/2013 10:26 AM CDT Height 157.5 cm (5' 2 ) 04/18/2013 10:26 AM CDT Body Mass Index 23.96 04/18/2013 10:26 AM CDT documented in this encounter Progress Notes * Harvey Hollins MD - 04/18/2013 10:15 AM CDT Reason For Visit Reason For Visit: Acute Visit Chief Complaint Chief Complaint Free Text: c/o has noticed lump under right arm, not tender and not sure how long been there History of Present Illness HPI Free Text: She has noticed some swelling under her arms. Right seems to be worse than left. The swelling seemsto come and go. She does not have any pain with the swelling. She denies any fever or chills. No weight loss or weight gain. She denies any night sweats. She is concerned about this finding because there have been many members of her family who have from cancer under the age of 40. She is not sure when this area of swelling started, she just noticed this a couple of days ago. Review of Systems Focused-Female: Constitutional: Normal. ENT: normal. Cardiovascular: Normal. Respiratory: Normal. Gastrointestinal: Normal. Genitourinary: Normal. Integumentary: Normal. Musculoskeletal: Normal. Neurological: Normal. Psychiatric: Normal. Active Problems 1. Esophageal Reflux 530.81 2. Insomnia 780.52 3. Lymphadenopathy 785.6 Surgical History 1. History of Hysterectomy V88.01 2. History of Intestinal Laparoscopy Family History 1. Maternal history of Benign Essential Hypertension 2. Maternal history of Diabetes Mellitus V18.0 3. Maternal history of Hypothyroidism 4. Fraternal history of Cancer Social History ?? Never A Smoker Current Meds 1. Omeprazole 20 MG Oral Capsule Delayed Release; TAKE 1 CAPSULE DAILY; Therapy: 23Oct2012 to (Evaluate:[id number]) 2. Zolpidem Tartrate 10 MG Oral Tablet; TAKE 1 TABLET AT BEDTIME NEEDED; Therapy: [id number] to Allergies 1. Penicillins Vitals Vital Signs [Data Includes: Current Encounter] 18Apr2013 10:26AM Heart Rate 107 Respiration 16 Systolic 138 Diastolic 86 BMI Calculated 24.11 BSA Calculated 1.59 Height 5 ft 2 in Weight 131 lb Physical Exam Constitutional General appearance: No acute distress, well appearing and well nourished. Eyes Conjunctiva and lids: No swelling, erythema or discharge. Pulmonary Respiratory effort: No increased work of breathing or signs of respiratory distress. Auscultation of lungs: Clear to auscultation. Cardiovascular Palpation of heart: Normal PMI, no thrills. Auscultation of heart: Normal rate and rhythm, normal S1 and S2, without murmurs. Abdomen Abdomen: Non-tender, no masses. Liver and spleen: No hepatomegaly or splenomegaly. Lymphatic Palpation of lymph nodes in neck: No lymphadenopathy. Skin Skin and subcutaneous tissue: Abnormal. Slight enlargement of the fatty tissue in bilateral axilla right greater than left. Psychiatric Mood and affect: Normal. Assessment 1. Lymphadenopathy 785.6 Plan Plan Free Text: Will check an ultrasound of bilateral axilla to evaluate the swelling in her axilla. We discussed that her finding are likely benign however, with her strong family history of cancers we will do further workup. Signatures Electronically signed by : Harvey Hollins M.D.; Apr 21 2013 8:22PM (Author) R POLLUTION CONTROL INSPECTOR documented in this encounter Plan of Treatment Not on file documented as of this encounter Visit Diagnoses Not on filedocumented in this encounter
--- OUTSIDE RECORDS SUMMARY | 2024-07-07 21:51 | XMS_ITS | Encounter Summary ---
Author Organization [facility] Address [address] [place] [address]. [place], [place] [address] [place] [address] Care Team Providers Care Snuff Blender Name Role Phone Unavailable Primary Care Provider Unavailabl e Encounter Details Date Type Department Care Team (Latest Contact Info) Description 06/12/[address] [facility] Medical Group Social History Tobacco Use Types Packs/Day Years Used Date Smoking Tobacco: Never Assessed Comments Unknown Sex and Gender Information Value Date Recorded Sex Assigned at Not on file Legal Sex Female 6:49 PM CDT Gender Identity Not on file Sexual Orientation Not on file documented as of this encounter Progress Notes * Hernandez Hart Md, MD - 06/12/2013 1:51 PM CST Message Recorded as Task Date: 06/12/2013 12:10 PM, Created By: Fanny Carrillo Task Name: Medical Complaint Callback Assigned To: [facility] Team Gunjan Regarding Patient: Nila Valentino, Status: Active Comment: Fanny Carrillo - 12 Jun 2013 12:10 PM TASK CREATED Caller: Self; Medical Complaint; (Mobile Phone) pt states was suppose to repeat last ultrasound in 2 months, but i don't see anything about that.....is wanting order Harvey Hollins - 12 Jun 2013 1:30 PM TASK REASSIGNED: Previously Assigned To Harvey Hollins Needs ultrasound of axilla Fanny Carrillo - 12 Jun 2013 1:50 PM TASK EDITED pt notified. order to be mailed to pt. Signatures Electronically signed by : Fanny Carrillo, ; Jun 12 2013 1:51PM (Author) ES ASSISTANT documented in this encounter Plan of Treatment Not on file documented as of this encounter Visit Diagnoses Not on filedocumented in this encounter
--- OUTSIDE RECORDS SUMMARY | 2024-07-07 21:51 | XMS_ITS | Clinical Summary ---
Author Organization [facility] Address [address] [place] [address]. [place] [phone] Care Team Providers Care Student Teaching Coordinator Name Role Phone Unavailable Primary Care Provider Unavailabl e Social History Tobacco Use Types Packs/Day Years Used Date Smoking Tobacco: Never Assessed Comments Unknown Sex and Gender Information Value Date Recorded Sex Assigned at Not on file Legal Sex Female 6:49 PM CDT Gender Identity Not on file Sexual Orientation Not on file Last Filed Vital Signs Vital Sign Reading [...] Mass Index 23.96 04/18/2013 10:26 AM CDT Plan of Treatment Health Maintenance Due Date Last Done Comments Cervical Cancer Screening Pa p Smear (Age 30 to 64) Every 3 Years 1973 Colorectal Cancer Screening Colonoscopy (10 Years) 1973 Annual Physical 1976 Hepatitis C 1991 DTaP, Tdap and Td Vaccines ( 1 - Tdap) 1992 Hepatitis B Vaccines (1 of 3 - 19+ 3-dose series) 1992 Cervical Cancer Screening Pa p with HPV Testing (Age 30 to 64) Every 5 Years 2003 Cervical Cancer Screening with HPV 2003 Mammogram Screening 2013 Zoster Vaccines (1 of 2) 2023 COVID-19 Vaccine (2023-2 5 season) 2024 Influenza Adult (#1) 2024 Meningococcal Vaccine Aged Out No elbert sujata eligible based on patient's age to complete this topic Pneumococcal Vaccine: Pediat rics (0 to 5 Years) and At-Risk Patients (6 to 64 Years) Aged Out No longer eligible b ased on patient's age to complete this topic RSV Immunizations Under 20 Months Aged Out No longer eligible based on patient's age to complete this topic
--- OUTSIDE RECORDS SUMMARY | 2024-07-07 21:51 | XMS_ITS | Encounter Summary ---
Author Organization [facility] Address [address] [place] [address]. [place], [place] [address] [place] [address] Care Team Providers Care Aircraft Instrument Engineer Name Role Phone Unavailable Primary Care Provider Unavailabl e Encounter Details Date Type Department Care Team (Latest Contact Info) Description 06/19/2014 Abstract [facility] Medical Group Social History Tobacco Use Types Packs/Day Years Used Date Smoking Tobacco: Never Assessed Comments Unknown Sex and Gender Information Value Date Recorded Sex Assigned at Not on file Legal Sex Female 6:49 PM CDT Gender Identity Not on file Sexual Orientation Not on file documented as of this encounter Progress Notes * Generic Conversion MD Ginette - 06/19/2014 11:59 AM CST Message Recorded as Task Date: 06/18/2014 11:29 AM, Created By: Fanny Saul Task Name: Medical Complaint Callback Assigned To: [facility] Team Gunjan Regarding Patient: Nila Valentino, Status: In Progress Comment: Fanny Saul - 18 Jun 2014 11:29 AM TASK CREATED Caller: Self; Medical Complaint; (Mobile Phone) is wanting you to order yearly labs to do soon. Harvey Hollins - 18 Jun 2014 2:45 PM TASK REASSIGNED: Previously Assigned To Harvey Hollins CBC, CMP, Lipids, TSH, Vit D, UA Namita Cunha - 19 Jun 2014 11:58 AM TASK IN PROGRESS Message: pt notified. lab order mailed-nk Plan 1. LC-Comp. Metabolic Panel ( CMP ) [id number] Status: Active Requested for: [id number] 2. LC-Lipid Panel [id number] Status: Active Requested for: [id number] 3. LC-TSH 847543 Status: Active Requested for: [id number] 4. LC-Urine with reflex to Culture, Routine 270765 Status: Active Requested for: [id number] 5. LC-Vitamin D, 25-Hydroxy 748009 Status: Active Requested for: [id number] 6. LC-CBC With Differential/Platelet 787125 Status: Active Requested for: [id number] Signatures Electronically signed by : Namita Cunha, ; Jun 19 2014 12:02PM HARP REGULATOR (Author) documented in this encounter Plan of Treatment Not on file documented as of this encounter Visit Diagnoses Not on filedocumented in this encounter
--- OUTSIDE RECORDS SUMMARY | 2024-07-07 21:52 | XMS_ITS | Encounter Summary ---
Author Organization [facility] Address [address] [place] [address] Care Team Providers Care Light Rail Transit Operator Name Role Phone Clinic, Pcp Primary Care Provider Unavailabl e Reason for Referral * Diagnostic Imaging (Routine) - Closed Specialty Diagnoses / Procedures Referred By Eddi t Referred To Contact Diagnoses Left shoulder pain, unspecified chronicity Procedures XR Shoulder Left 2 [place] [address] [place] [address] Phone: tel: fax: [facility] Referral ID Status Reason Start Date Expiration Date Visits Re quested Visits Authorized [id number] Closed 10/07/2021 11/06/2022 1 1 Reason for Visit * Diagnostic Imaging (Routine) - Closed Specialty Diagnoses / Procedures Referred By Eddi t Referred To Contact Diagnoses Left shoulder pain, unspecified chronicity Procedures XR Shoulder [place] 2 [place] [address] [place] [address] Phone: tel: fax: [facility] Referral ID Status Reason Start Date Expiration Date Visits Re quested Visits Authorized [id number] Closed 10/07/2021 11/06/2022 1 1 Encounter Details Date Type Department Care Team (Latest Contact Info) Description 10/13/2021 11:10 AM CDT - 10/13/2021 11:43 AM CDT Hospital Encounter [facility] [address] [place] [address] [place] [address] [place] [address] Left shoulder pain, unspecified chronicity Discharge Disposition: Discharge to home or self care Social History Tobacco Use Types Packs/Day Years Used Date Smoking Tobacco: Never Assessed Comments Unknown Sex and Gender Information Value Date Recorded Sex Assigned at Not on file Legal Sex Female 2:03 PM CDT Gender Identity Not on file Sexual Orientation Not on file documented as of this encounter Medications at Time of Discharge busPIRone (BUSPAR) 10 mg tablet buspirone 10 mg tablet TAKE 1 TABLET BY MOUTH TWICE DAILY elagolix (Orilissa) 150 mg tablet Orilissa 150 mg tablet omeprazole (PriLOSEC) 20 mg capsule omeprazole 20 mg capsule,delayed release pantoprazole DR (PROTONIX) 40 mg EC tablet pantoprazole 40 mg tablet,delayed release traZODone (DESYREL) 50 mg tablet Take 50-100 mg by mouth nightly 09/29/2021 venlafaxine XR (EFFEXOR-XR) 75 mg 24 hr capsule Take 75 mg by mouth daily 09/02/2021 documented as of this encounter Discharge Disposition Disposition Code Departure Means Destination Discharge to home or self care documented in this encounter Plan of Treatment Not on file documented as of this encounter Procedures Procedure Name Priority Date/Time Associated Diagnosis Comments XR SHOULDER LEFT 2 OR MORE VIEWS Schedule Routine, Read Routine (OP Routine) 10/13/2021 11:41 AM CDT Left shoulder pain, unspecified chronicity documented in this encounter Results * XR Shoulder Left 2 or More Views (10/13/2021 11:41 AM CDT) Anatomical Region Laterality Modality Upper Extremities, Shoulder Left Comp uted Radiography 10/13/2021 12:1 4 PM CDT Impressions 10/13/2021 12:14 PM CDT 1. ??Normal left shoulder radiographs. Electronically signed by: Morgan Baker M.D. Narrative 10/13/2021 12:14 PM CDT EXAMINATION: Left shoulder 2 or more views HISTORY: ??Left shoulder pain FINDINGS: 4 views of the left shoulder are submitted for interpretation. No prior examination is available for comparison. The glenohumeral and acromioclavicular joint spaces are normal. The alignment is anatomic. No fracture is seen. Procedure Note Morgan Baker MD - 10/13/2021 EXAMINATION: Left shoulder 2 or more views HISTORY: Left shoulder pain FINDINGS: 4 views of the left shoulder are submitted for interpretation. No prior examination is available for comparison. The glenohumeral and acromioclavicular joint spaces are normal. The alignment is anatomic. No fracture is seen. IMPRESSION: 1. Normal left shoulder radiographs. Electronically signed by: Morgan Baker M.D. us Arun Singh MD IMG XR PROCEDURES Final Res ult documented in this encounter Visit Diagnoses Diagnosis Left shoulder pain, unspecified chronicity documented in this encounter Care Teams Light Rail Transit Operator Relationship Specialty Start Date End Date Clinic, Pcp PCP - General 09/28/21 10/18/21 documented as of this encounter
--- OUTSIDE RECORDS SUMMARY | 2024-07-07 21:52 | XMS_ITS | Encounter Summary ---
Author Organization [facility] Address [address] [place] [address] Care Team Providers Care Appointment Manager Name Role Phone Clinic, Pcp Primary Care Provider Unavailabl e Encounter Details Date Type Department Care Team (Latest Contact Info) Description 10/13/2021 11:44 AM CDT - 10/13/2021 11:59 PM CDT Hospital Encounter [facility] [address] [place] [address] Discharge Disposition: Discharge to home or self [...] 150 mg tablet Orilissa 150 mg tablet meloxicam (MOBIC) 15 mg tablet Take 1 tablet (15 mg total) by mouth daily 30 tablet 10/13/2021 omeprazole (PriLOSEC) 20 mg capsule omeprazole 20 [...] Procedure Name Priority Date/Time Associated Diagnosis Comments MSK CT MR OUTSIDE REFERENCE Routine 10/13/2021 11:44 AM CDT Diagnosis unknown documented in this encounter Results * MSK CT MR Outside Reference (10/13/2021 11:44 AM CDT) Impressions [facility] - 10/13/2021 11:44 AM CDT These images are for Reference purposes only and have not been reviewed by [facility]. ??There will be no report generated by a [facility] Radiologist. Narrative [facility] - 10/13/2021 11:44 AM CDT EXAMINATION: ??Images For Reference Purposes Only us Arun Singh MD IMG CT PROCEDURES Final Res ult [facility] documented in this encounter Visit Diagnoses Not on filedocumented in this encounter Care Teams Appointment Manager Relationship Specialty Start Date End Date Clinic, Pcp PCP - General 09/28/21 10/18/21 documented as of this encounter
--- OUTSIDE RECORDS SUMMARY | 2024-07-07 21:52 | XMS_ITS | Encounter Summary ---
Author Organization [facility] Address [address] [place] [address] Care Team Providers Care Day Haul Youth Supervisor Name Role Phone Clinic, Pcp Primary Care Provider Unavailabl e Encounter Details Date Type Department Care Team (Late st Contact Info) Description 10/18/2021 Telephone [facility] [address] [place] [address] Kassi Coto DO [address] [place] [address] [place] [address] Social History Tobacco Use Types Packs/Day Years Used Date Smoking Tobacco: Never Assessed Comments Unknown Sex and Gender Information Value Date Recorded Sex Assigned at Not on file Legal Sex Female 2:03 PM CDT Gender Identity Not on file Sexual Orientation Not on file documented as of this encounter Miscellaneous Notes * Telephone Encounter - Rea Jim - 10/18/2021 2:39 PM CDT Instructed pt. To Arrive at [address] [place] [address] [place] [address] Coto on 10/19/21 at 0910. Instructed mask is required. Instructed only 1 visitor over age of 16 allowed. COVID questions addressed. To reschedule or for questions/concerns call [phone]. documented in this encounter Plan of Treatment Not on file documented as of this encounter Visit Diagnoses Not on filedocumented in this encounter Care Teams Day Haul Youth Supervisor Relationship Specialty Start Date End Date Clinic, Pcp PCP - General 09/28/21 10/18/21 documented as of this encounter
--- OUTSIDE RECORDS SUMMARY | 2024-07-07 21:52 | XMS_ITS | Clinical Summary ---
Author Organization [facility] Address [facility] [place] [address] Care Team Providers Care Ship Carpenter Name Role Phone Raymond Almanza MD Primary Care Prov ider Allergies Active Allergy Reactions Criticality Noted Date Comments Penicillins Hives Medium 10/13/2021 Medications traZODone (DESYREL) 50 mg tablet Take 50-100 mg by mouth nightly 2 Active venlafaxine XR (EFFEXOR-XR) 75 mg 24 hr capsule Take 75 mg by mouth daily 2 Active busPIRone (BUSPAR) 10 mg tablet buspirone 10 mg tablet TAKE 1 TABLET BY MOUTH TWICE DAILY Active elagolix (Orilissa) 150 mg tablet Orilissa 150 mg tablet Active omeprazole (PriLOSEC) 20 mg capsule omeprazole 20 mg capsule,delayed release Active pantoprazole DR (PROTONIX) 40 mg EC tablet pantoprazole 40 mg tablet,delayed release Active meloxicam (MOBIC) 15 mg tablet Take 1 tablet (15 mg total) by mouth daily 30 tablet 2 Active Active Problems No known active problems Surgical History Surgery Date Site/Laterality Comments FLUORO GUIDED INJECTION SHOULDER LEFT 10/19/2021 Lef t Social History Tobacco Use Types Packs/Day Years Used Date Smoking Tobacco: Never Assessed Comments Unknown Sex and Gender Information Value Date Recorded Sex Assigned at Not on file Legal Sex Female 2:03 PM CDT Gender Identity Not on file Sexual Orientation Not on file Obstetrics History Last Filed Vital Signs Vital Sign Reading Time Taken Comments Blood Pressure 121/70 10/19/2021 10:25 AM CDT Pulse 61 10/19/2021 10:25 AM CDT Temperature 36.2 ??C (97.2 ??F) 10/19/2021 10:25 AM C DT Respiratory Rate 20 10/19/2021 10:25 AM CDT Oxygen Saturation 99% 10/19/2021 10:25 AM CDT Inhaled Oxygen Concentration - - Weight 56.7 kg (125 lb) 10/13/2021 11:34 AM CDT Height 157.5 cm (5' 2 ) 10/13/2021 11:34 AM CDT Body Mass Index 22.86 10/13/2021 11:34 AM CDT Plan of Treatment Health Maintenance Due Date Last Done Comments Breast Cancer Screening-Mammogram 1973 Cervical Cancer Screening 1973 Colon Cancer Screening-Colonoscopy 1973 Depression Screening 1973 Hepatitis C Screening 1973 DTaP/Tdap/Td Vaccine (1 - Tdap) 1984 Hepatitis B Screening 1991 Regular Well Visit/Exam 18-64 1991 Zoster Vaccine (1 of 2) 2023 Covid-19 Vaccine (3 - 2023-2 5 season) 2024 10/26/2020, 10/02/2020 Influenza Vaccine (#1) 2024 Pneumococcal vaccine <65 Aged Out No longer eligible based on patient's age to complete [place] [address] [facility] Care Teams Ship Carpenter Relationship Specialty Start Date End Date Raymond Almanza MD [address] [place] [address] PCP - General 10/19/21
--- OUTSIDE RECORDS SUMMARY | 2024-07-07 21:52 | XMS_ITS | Encounter Summary ---
Author Organization [facility] Address [address] [place] [address] Phone Care Team Providers Care Digital Court Reporter Name Role Phone Raymond Almanza MD Primary Care Prov ider Reason for Referral * Procedure (Routine) - Closed Specialty Diagnoses / Procedures Referred By Eddi duncan Referred To Contact Diagnoses Adhesive capsulitis of left shoulder Procedures Large Joint Injection: L glenohumeral David Chu MD [address] [facility] [address] [address] Phone: tel: fax: [facility] (All Locations) Referral ID Status Reason Start Date Expiration Date Visits Re quested Visits Authorized [id number] Closed 04/06/2022 05/06/2023 1 1 Encounter Details Date Type Department Care Team (Late st Contact Info) Description 04/06/2022 12:45 PM CDT Office Visit [facility] Orthopaedic Surgery [address] [facility] [address] [place] [address] [place] [id number] David Chu MD [address] [facility] [address] [place] [address] Left shoulder pain, unspecified chronicity (Primary Dx); Adhesive capsulitis of left shoulder Social History Tobacco Use Types Packs/Day Years Used Date Smoking Tobacco: Never Assessed Comments Unknown Sex and Gender Information Value Date Recorded Sex Assigned at Not on file Legal Sex Female 2:03 PM CDT Gender Identity Not on file Sexual Orientation Not on file documented as of this encounter Progress Notes * David Chu MD - 04/06/2022 12:45 PM CDTAssociated Order(s): Large Joint Injection: L glenohumeral Post-Procedure Diagnose(s): Adhesive capsulitis of left shoulder NEW PATIENT VISIT CHIEF COMPLAINT Left shoulder pain HISTORY OF PRESENT ILLNESS 46-year-old right-hand dominant female with complaints of left shoulder pain and stiffness. This stems from a original injury dating back to April 2021. She developed a frozen shoulder. She saw in the spring time. She had an image guided steroid injection and went through several months of therapy. She got mostly better. She stopped the therapy in the summer time. Over the last couple months her shoulder pain is increased and she has been having a lot of pain at nighttime. She has lost range of motion as well. Patient has no known thyroid disease. She is not a diabetic. She had ahysterectomy at the age of 30 and they took 1 of her ovaries. PAST MEDICAL HISTORY She History reviewed. No pertinent past medical history. PAST SURGICAL HISTORY She Past Surgical History: Procedure Laterality Date ??? FLUORO GUIDED INJECTION SHOULDER LEFT Left 10/19/2021 INITIAL REVIEW OF MEDICATIONS She has a current medication list which includes the following prescription(s): buspirone, orilissa, meloxicam, omeprazole, pantoprazole dr, trazodone, and venlafaxine xr. DRUG ALLERGIES She is allergic to penicillins. SOCIAL HISTORY She No alcohol history on file. FAMILY HISTORY Her family history is not on file. REVIEW OF SYSTEMS Review of Systems PHYSICAL EXAMINATION Exam shows a pleasant female no acute distress. She is alert oriented and answers questions appropriately. There is no swelling or deformity around the shoulder. Her AC joint nontender. She can actively elevate today to about 110?? with scapular substitution. External rotation with arm to side is 20?? a firm capsular end feel. True glenohumeral abduction is about 50?? limited by capsular stiffness. She can reach behind her back to the lower lumbar level. She has good external rotation and abduction strength. Her biceps signs are positive. False positive abdominal compression test. REVIEW OF X-RAYS/STUDIES Previous radiographs from September were reviewed. These are normal. Previous MRI from September was reviewed. This is consistent with frozen shoulder with no significant structural damage. IMPRESSION/DIAGNOSIS Recurrent frozen shoulder a 46-year-old female. TREATMENT PLAN We discussed options both conservative and surgical. She elected for conservative management. I injected her left glenohumeral joint local anesthetic mixed with 80 mg of Kenalog. Recommend we start some physical therapy locally. I also recommended that she have her TSH level checked by her primary care doctor. Follow-up in 6 weeks Large Joint Injection: L glenohumeral Performed by: David Chu MD Authorized by: David Chu MD Supporting Documentation: Indications: Pain Procedure Details: Location: Shoulder Site: L glenohumeral Prep: patient was prepped using a clean technique Needle Size: 22 G Approach: Posterior Ultrasound guided: No Medications: 80 mg triamcinolone 40 mg/mL; 4 mL bupivacaine HCl 0.5 % (5 mg/mL); 4 mL lidocaine 10 mg/mL (1 %) David Chu MD Professor Chief, Shoulder and Elbow Service [facility] Dr Chu dictating via MModal. Drywall Stripper Helper variances may occur. documented in this encounter Plan of Treatment Not on file documented as of this encounter Procedures Procedure Name Priority Date/Time Associated Diagnosis Comments IN ARTHROCENTESIS ASPIR&/INJ MAJOR JT/BURSA W/O US Routine 04/06/2022 12:45 PM CDT Adhesive capsulitis of left shoulder documented in this encounter Results * IN ARTHROCENTESIS ASPIR&/INJ MAJOR JT/BURSA W/O US (04/06/2022 12:45 PM CDT) Narrative David Chu MD - 04/06/2022 12:45 PM CDT David Chu MD ? 04/06/2022 ??2:47 PM Large Joint Injection: L glenohumeral Performed by: David Chu MD Authorized by: David Chu MD Supporting Documentation: ??Indications: ??Pain Procedure Details: ??Location: ??Shoulder ??Site: ??L glenohumeral ??Prep: patient was prepped using a clean technique ?Needle Size: ??22 G ??Approach: ??Posterior ??Ultrasound guided: No ?Medications: ??80 mg triamcinolone 40 mg/mL; 4 mL bupivacaine HCl 0.5 % (5 mg/mL); 4 mL lidocaine 10 mg/mL (1 %) David Chu MD IN CLINIC/BEDSIDE ORDERABL ES Final Result documented in this encounter Visit Diagnoses Diagnosis Left shoulder pain, unspecified chronicity- Primary Adhesive capsulitis of left shoulder documented in this encounter Administered Medications Inactive Administered Medications - up to 3 most recent administrations Medication Order MAR Action Action Date Dose Rate Site bupivacaine HCl (MARCAINE) 0.5 % (5 mg/mL) injection 4 mL 4 mL, One-Time Injection, Starting on Mon04/06/22 at 1447, For 1 doseIndications:Adhesive capsulitis of left shoulder Given 04/06/2022 2:47 PM CDT 4 mL Left Shoulder lidocaine (XYLOCAINE) 10 mg/mL (1 %) injection 4 mL 4 mL, One-Time Injection, Starting on Mon04/06/22 at 1447, For 1 dose, Indications: Administration of Local AnesthesiaIndications:Adminis tration of Local Anesthesia Given 04/06/2022 2:47 PM CDT 4 mL Left Shoulder triamcinolone (KENALOG) 40 mg/mL injection 80 mg 80 mg, intra-articular, One-Time Injection, Starting on Mon04/06/22 at 1447, For 1 doseIndications:Adhesive capsulitis of left shoulder Given 04/06/2022 2:47 PM CDT 80 mg Left Shoulder documented in this encounter Care Teams Digital Court Reporter Relationship Specialty Start Date End Date Raymond Almanza MD [address] [place] [address] PCP - General 10/19/21 documented as of this encounter
--- OUTSIDE RECORDS SUMMARY | 2024-07-07 21:52 | XMS_ITS | Encounter Summary ---
Author Organization [facility] Address [address] [facility] [address] [facility] [address] [place] [address] Care Team Providers Care Dramatic Coach Name Role Phone Raymond Almanza MD Primary Care Prov ider Encounter Details Date Type Department Care Team (Late st Contact Info) Description 02/14/2023 Orders Only [facility] Cardiology [address] [place] [address] Taylor Bhatt MD [address] [place] [address] Social History Tobacco Use Types Packs/Day Years [...] on filedocumented in this encounter Care Teams Dramatic Coach Relationship Specialty Start Date End Date Raymond Almanza MD [address] [place] [address] PCP - General 10/19/21 documented as of this encounter
--- OUTSIDE RECORDS SUMMARY | 2024-07-07 21:52 | XMS_ITS | Encounter Summary ---
Author Organization [facility] Address [address] [place] [address] Care Team Providers Care Job Honer Name Role Phone Raymond Almanza MD Primary Care Prov ider Reason for Referral * Diagnostic Imaging (Routine) - Closed Specialty Diagnoses / Procedures Referred By Contac t Referred To Contact Diagnoses Left shoulder pain, unspecified chronicity Procedures [place] Flu[place] [address] [place] [address] Phone: tel: fax: [facility] Orthopedic Center Referral ID Status Reason Start Date Expiration Date Visits Re quested Visits Authorized [id number] Closed 10/13/2021 11/12/2022 1 1 Reason for Visit * Diagnostic Imaging (Routine) - Closed Specialty Diagnoses / Procedures Referred By Eddi t Referred To Contact Diagnoses Left shoulder pain, unspecified chronicity Procedures [place] Flu[place]ided [place] [address] [place] [address] Phone: tel: fax: [facility] Orthopedic Center Referral ID Status Reason Start Date Expiration Date Visits Re quested Visits Authorized [id number] Closed 10/13/2021 11/12/2022 1 1 Encounter Details Date Type Department Care Team (Latest Contact Info) Description 10/19/2021 9:10 AM CDT - 10/19/2021 11:59 PM CDT Hospital Encounter [facility] [address] [place] [address] [place] [address] [place] [address] [place] [address] [place] [address] Left shoulder pain, unspecified chronicity (Primary Dx) Discharge Disposition: Discharge to home or self [...] CDT Inhaled Oxygen Concentration - - Weight - - Height - - Body Mass Index - - documented in this encounter Medications at Time of Discharge [...] or self care documented in this encounter Progress Notes * Kassi Coto, - 10/19/2021 9:40 AM CDT Fluoroscopically-Guided Glenohumeral Joint Injection [facility] Department of Orthopedic Surgery Division of Physical Medicine and Rehabilitation Patient name: Nila Valentino Date of : 1975 Date of service: 10/19/2021 Nila Valentino presents to the fluoroscopy suite for a fluoroscopically guided left glenohumeralinjection as part of conservative treatment for shoulder pain, frozen shoulder. After informed consent was obtained, the patient was positioned prone on the fluoroscopy table. The left glenohumeral joint was located under fluoroscopic guidance. The area was prepped and draped in sterile fashion. Using a 25 gauge 2 inch needle, 1-2 mL of 1% lidocaine was infused subcutaneously to anesthetize the region. Then, the needle was advanced under fluoroscopic guidance. Confirmation into the joint capsule was attained with the infusion of 0.25 mL of Omnipaque contrast which showed capsular flow. Then, a combination of 4 mL of 1% lidocaine without epinepherine, 40 mg Kenalog and 4 mL of 0.2% ropivacaine was infused. The patient tolerated the procedure without complications. Pre and post procedure blood pressures were stable. The patient was given verbal as well as written follow-up instructions. Apain diary was given to the patient with follow-up instructions. Prior to the start of the procedure, verbal verification by the procedure participant(s) confirmed (as applicable): correct patient identity; correct site/side marked and visible; agreement on the procedure to be done; correct patient positioning; an accurate procedure consent form, relevant imagesand results correctly labeled and displayed; any safety precautions based on clinical history and/or medication use have been addressed. Fluoroscopic guidance was used to assist left glenohumeral injection. Confirmation of needle placement into the left glenohumeral joint was obtained by injecting approximately 0.25 mL of Omnipaque contrast. There was no evidence of vascular uptake noted. The procedure was performed with the Fellow, Dr. Ryan. I was present during the entire procedure. Keshawn Coto DO documented in this encounter Plan of Treatment Not on file documented as of this encounter Procedures Procedure Name Priority Date/Time Associated Diagnosis Comments FLUORO GUIDED INJECTION SHOULDER LEFT Schedule Routine, Read Routine (OP Routine) 10/19/2021 10:22 AM CDT Left shoulder pain, unspecified chronicity documented in this encounter Results * FL Fluoro Guided Injection Shoulder Left (10/19/2021 10:22 AM CDT) Narrative [facility] - 10/19/2021 10:23 AM CDT The images from this study are not interpreted by Radiology. ??Please refer to the physician's procedure / OR operative note. Arun Singh MD IMG FLUOROSCOPY PROCEDURES Final Result Performing Organization Address City/State/[facility] Co de Phone Number [facility] documented in this encounter Visit Diagnoses Diagnosis Left shoulder pain, unspecified chronicity- Primary documented in this encounter Administered Medications Inactive Administered Medications - up to 3 most recent administrations Medication Order MAR Action Action Date Dose Rate Site iohexoL (OMNIPAQUE) 300 mg iodine/mL injection solution Code/trauma/sedation medication, Starting on Mon10/19/21 at 1005 Given 10/19/2021 10:05 AM CDT 0.5 mL lidocaine PF (XYLOCAINE) 10 mg/mL (1 %) preservative free injection Code/trauma/sedation medication, Starting on Mon10/19/21 at 1004, Intra-Procedure (IR), Indications: Administration of Local AnesthesiaIndications:Administrat ion of Local Anesthesia Given 10/19/2021 10:04 AM CDT 4 mL ropivacaine (NAROPIN) 2 mg/mL (0.2 %) preservative free injection Code/trauma/sedation medication, Starting on Mon10/19/21 at 1005 Given 10/19/2021 10:05 AM CDT 4 mL triamcinolone (KENALOG) 40 mg/mL injection Code/trauma/sedation medication, Starting on Mon10/19/21 at 1005 Given 10/19/2021 10:05 AM CDT 40 mg documented in this encounter Care Teams Job Honer Relationship Specialty Start Date End Date Raymond Almanza MD [address] [place] [address] PCP - General 10/19/21 documented as of this encounter
--- OUTSIDE RECORDS SUMMARY | 2024-07-07 21:52 | XMS_ITS | Referral Summary ---
Author Organization [facility] Address [facility] [place] [address] Care Team Providers Care Cooperative Extension Agent Name Role Phone Raymond Almanza MD Primary [...] Active Active Problems No known active problems Social History Tobacco Use Types Packs/Day Years [...] 10/13/2021 11:34 AM CDT Plan of Treatment Not on file [place] Care Teams Cooperative Extension Agent Relationship Specialty Start Date End Date Raymond Almanza MD [address] [place] [address] PCP - General 10/19/21
--- OUTSIDE RECORDS SUMMARY | 2024-07-07 21:52 | XMS_ITS | Encounter Summary ---
Author Organization [facility] Address [address] [place] [address] Phone Care Team Providers Care District Gauger Name Role Phone Raymond Almanza MD Primary Care Prov ider Reason for Visit * Reason Comments Follow-up Encounter Details Date Type Department Care Team (Late st Contact Info) Description 05/18/2022 2:00 PM CDT Office Visit [facility] Orthopaedic Surgery [address] [facility] [address] [place] [address] [place] [address] David Chu MD [address] [facility] [address] [place] [address] Adhesive capsulitis of left shoulder (Primary Dx) Social History Tobacco Use Types Packs/Day Years Used Date Smoking Tobacco: Never Assessed Comments Unknown Sex and Gender Information Value Date Recorded Sex Assigned at Not on file Legal Sex Female 2:03 PM CDT Gender Identity Not on file Sexual Orientation Not on file documented as of this encounter Progress Notes * David Chu MD - 05/18/2022 2:00 PM CDT SUBJECTIVE: Patient is feeling considerably better. The therapy is helping. The injection was a big help. She does not have much pain is still bit of stiffness at this point. OBJECTIVE: Patient is alert and oriented X4. Breathing is nonlabored. She can elevate to 140?? external rotation today was about 55-60 degrees. True glenohumeral abduction was close to 90?? he can reach behind her back to the thoracolumbar junction. She had good external rotation and abduction strength there is slight pain with resisted abduction. Abdominal compression test is negative. Biceps signs are negative RADIOGRAPHS: None ASSESSMENT/PLAN: Resolving recurrent frozen shoulder in a 46-year-old female. We are going to continue therapy but back down to 1 day per week. We discussed some stretches to work on at home. Hopefully her pain staysaway this time after the shot wears off. Follow up p.r.n. David Chu MD Professor Chief, Shoulder and Elbow Service [facility] Dr Chu dictating via MModal. Truck Service Manager variances may occur. documented in this encounter Plan of Treatment Not on file documented as of this encounter Visit Diagnoses Diagnosis Adhesive capsulitis of left shoulder- Primary documented in this encounter Care Teams District Gauger Relationship Specialty Start Date End Date Raymond Almanza MD [address] [place] [address] PCP - General 10/19/21 documented as of this encounter
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
--- OUTSIDE RECORDS SUMMARY | 2024-07-07 21:52 | XMS_ITS | Encounter Summary ---
Author Organization [facility] Address [address] [place] [address] Phone Care Team Providers Care Supervisor Color Making Name Role Phone Raymond Almanza MD Primary Care Prov ider Encounter Details Date Type Department Care Team (Late st Contact Info) Description 04/06/2022 Orders Only [facility] Orthopaedic Surgery [address] [facility] [address] [facility] [address] [place] [address] [place] [address] David Chu MD [address] [facility] [address] [place] [address] Social History Tobacco Use Types Packs/Day Years [...] on filedocumented in this encounter Care Teams Supervisor Color Making Relationship Specialty Start Date End Date Raymond Almanza MD [address] [place], [place] [phone] PCP - General 10/19/21 documented as of this encounter
== END 2024-07-01 08:56 | disposition home or self-care (01) ==
LOC: ANHIMG 08:58
PROVIDERS: PCP Family Medicine Adolescent Medicine; Visit Provider Obstetrics & Gynecology
DX: Z12.31 Encounter for screening mammogram for malignant neoplasm of breast (principal)
CPT/HCPCS: 77063; 77067

== ENCOUNTER 2024-11-28 07:40 | Outpatient (CLI) | payer BC, SELFPAY ==
--- NOTE | ~2024-11-28 | US_ITS ---
Abdominal Sonogram: Real-time sonographic imaging of the abdomen was performed. Clinical History: Left upper quadrant pain Findings: The liver appears normal with no evidence of mass lesion or bile duct dilatation. Main por ivory vein demonstrates normal direction of flow. The spleen is normal in size without evidence of foca l lesion. The gallbladder is well distended, and appears normal with no evidence of gallstone or wal l thickening. The common bile duct measures 3 mm. The visualized pancreas, aorta, and IVC are unrema rkable. The right kidney measures 10.7 cm in length and the left kidney measures 10.0 cm. There is no hydronephrosis or renal calculus. Impression: Unremarkable abdominal ultrasound. Reviewed, dictated and finalized at location . Impression: Unremarkable abdominal ultrasound.
== END 2024-11-28 07:41 | disposition home or self-care (01) ==
LOC: MICIMG 07:40
PROVIDERS: PCP Family Medicine Adolescent Medicine; Visit Provider Nurse Practitioner Family
DX: R10.12 Left upper quadrant pain (principal); R74.8 Abnormal levels of other serum enzymes
CPT/HCPCS: 76700

== ENCOUNTER 2025-01-01 08:37 | Outpatient (CLI) | payer BC, SELFPAY ==
--- NOTE | ~2025-01-01 | CT_ITS ---
CT of the Abdomen and Pelvis: Indication: Abdominal pain Technique: 2.5 mm axial scans were obtained through the abdomen and pelvis following intravenous adm inistration of 100 cc of Omnipaque 350. Dose reduction technique was used on this scan by utilizing a utomated exposure control and iterative reconstruction technique. The dose-length product (DLP) was 3 00.95 mGy-cm. Findings: Scans through the lung bases are unremarkable. The liver, spleen, pancreas, gallbladder, adrenals and kidneys are within normal limits. No evidence of aortic aneurysm. No lymphadenopathy. No bowel obstruction or bowel wall thickening. There is no evidence to suggest acute appendicitis. Images through the pelvis were performed. Urinary bladder unremarkable. No pelvic mass seen. No ascit es. Impression: No significant abnormalities seen. Reviewed, dictated and finalized at location . Impression: No significant abnormalities seen.
--- OUTSIDE RECORDS SUMMARY | 2025-01-01 09:01 | XMS_ITS | Referral Summary ---
Author Organization [facility] Address [facility] [place] [address] Care Team Providers Care Public Health Program Manager Name Role Phone Raymond Almanza MD Primary [...] 61 10/19/2021 10:25 AM CDT Temperature 36.2 C (97.2 F) 10/19/2021 10:25 AM CDT Respiratory Rate 20 10/19/2021 10:25 AM CDT Oxygen Saturation 99% 10/19/2021 10:25 AM CDT Inhaled Oxygen Concentration - - Weight 56.7 kg (125 lb) 10/13/2021 11:34 AM CDT Height 157.5 cm (5' 2) 10/13/2021 11:34 AM CDT Body Mass Index 22.86 10/13/2021 11:34 AM CDT Plan of Treatment Not on file Insurance [employer] [place] Care Teams Public Health Program Manager Relationship Specialty Start Date End Date Raymond Almanza MD [address] [place] [address] PCP - General 10/19/21
--- OUTSIDE RECORDS SUMMARY | 2025-01-01 09:01 | XMS_ITS | Clinical Summary ---
Author Organization [facility] Address [facility] [place] [address] Care Team Providers Care Registered Nurse Midwife Name Role Phone Raymond Almanza MD Primary [...] 5 season) 2024 10/26/2020, 10/02/2020 Influenza Vaccine (Season Ended) 2025 Pneumococcal vaccine <65 Aged Out No longer eligible based on patient's age to complete this topic Insurance [facility] Care Teams Registered Nurse Midwife Relationship Specialty Start Date End Date Raymond Almanza MD [address] [place] [phone] PCP - General 10/19/21
== END 2025-01-01 08:38 | disposition home or self-care (01) ==
PROVIDERS: PCP Family Medicine Adolescent Medicine; Visit Provider Nurse Practitioner
DX: K21.9 Gastro-esophageal reflux disease without esophagitis (principal)
CPT/HCPCS: 74177; Q9967

== ENCOUNTER 2025-07-03 10:44 | Outpatient (CLI) | payer BC, SELFPAY ==
--- NOTE | ~2025-07-03 | MM_ITS ---
EXAMINATION: MM screening daniel BI w maryjane HISTORY: Screening TECHNIQUE: Craniocaudal and mediolateral oblique 3-D tomosynthesis images were obtained and synthetic 2-D images were generated. CAD analysis was submitted and interpreted. COMPARISON: Comparison to multiple prior studies sequentially, with oldest reviewed study dated 12/12/2019. BREAST PARENCHYMAL COMPOSITION: Dense: The breasts are heterogeneously dense, which may obscure small masses FINDINGS: There is no evidence of suspicious mass, calcification, or architectural distortion to suggest malignancy in either breast. There has been no suspicious interval change. IMPRESSION: 1. No mammographic evidence of malignancy. 2. Recommend routine screening mammography in one year. BI-RADS Category 1: Negative Reviewed, dictated and finalized at location O. ET COLLECTOR OR USHER
--- OUTSIDE RECORDS SUMMARY | 2025-07-03 11:55 | XMS_ITS | Clinical Summary ---
Author Organization [facility] Address [facility] [place] [address] Care Team Providers Care Mold Cutting Machine Operator Name Role Phone Raymond Almanza MD Primary [...] Plan of Treatment Not on file Insurance [employer] Care Teams Mold Cutting Machine Operator Relationship Specialty Start Date End Date Raymond Almanza MD PCP - General 10/19/21
== END 2025-07-03 10:45 | disposition home or self-care (01) ==
LOC: ANHFOHIMG 10:49
PROVIDERS: PCP Nurse Practitioner Family; Visit Provider Nurse Practitioner Obstetrics & Gynecology
DX: Z12.31 Encounter for screening mammogram for malignant neoplasm of breast (principal)
CPT/HCPCS: 77063; 77067

== ENCOUNTER 2025-07-16 10:18 | Emergency (ER) | payer BC, SELFPAY ==
[2025-07-16 10:20] VITALS: BP 111/66; PULSE 111; RESP 18; TEMP 37.4; O2SAT 100
--- NOTE | 2025-07-16 10:26 | ED_ITS ---
HPI - URI/Sore Throat General Chief Complaint: Upper Respiratory Infection Stated Complaint: URI Symptoms Time Seen by Provider: 07/16/25 10:42 Source: patient and RN notes reviewed Mode of arrival: ambulatory Limitations: no limitations History of Present Illness HPI Narrative: 50-year-old female presents with concern for cough, headache, body aches that started on Monday. She reports she had been sick prior to that but got better for at least 3 or 4 days before his new symptoms started. She has been taking Sudafed. MD elicited complaint: cough Related Data Home Medications ?Medication ?Instructions ?Recorded ?Confirmed ?Last Taken ?Type calcium 600 mg (as carbonate)-vit tablet PO 08/16/24 0 12/17/24 Unknown History D3 10 mcg (400 unit) chewable tablet (Calcium 600 with Vitamin D3) cyclobenzaprine 10 mg tablet 10 mg PO TID 12/16/24 Unknown History hydroxychloroquine 200 mg tablet 200 mg PO DAILY 04/1107/16/25 Unknown History (Plaquenil) Allergies Allergy/AdvReac Type Severity Reaction Status Date / Time iohexol (From contrast - CT, Allergy Severe Hives Verified 07/16/25 10:27 X-RAY) Penicillins Allergy Mild Hives Verified 07/16/25 10:27 Review of Systems Review of Systems: CONSTITUTIONAL: Reports malaise, fever. EYES: Denies visual changes, redness, or discharge. ENT: Reports rhinorrhea, congestion. Denies sinus pain, otalgia and sore throat. CARDIOVASCULAR: Denies chest pain, palpitations, or edema. RESPIRATORY: Reports cough. Denies dyspnea. GASTROINTESTINAL: Denies abdominal pain, nausea, vomiting, diarrhea SKIN: Denies rash or itching. MUSCULOSKELETAL: Reports myalgia. NEUROLOGIC: Reports headache. All systems reviewed & are unremarkable except as noted in HPI and below PMFSH Past Medical History Medical History (Updated 07/16/25 @ 10:53 by Sheree Desir APRN) Arthritis of foot, degenerative Exostosis of both feet Generalized abdominal pain Superior glenoid labrum lesion of left shoulder, initial encounter Normal colonoscopy 10/28 Tendonitis of left rotator cuff Subacromial bursitis of left shoulder joint Left shoulder pain Sleep disorder Vaginal delivery x 2 Endometriosis Irritable bowel Acid reflux Anxiety Surgical History Surgical History H/O exploratory laparotomy [place] teeth removed History of abdominal hysterectomy (~2005) with left oophorectomy Family History Family History Grandparent Blood clot in vein Cerebrovascular accident Diabetes mellitus Mother Hypertension Diabetes mellitus Hypothyroidism Lupus Father Diabetes mellitus Sibling Sarcoma of pelvis Other Acute myocardial infarction Neuropathy Social History Social History Smoking status: Never smoker Second hand tobacco smoke exposure: No Alcohol intake: current Drinks per week: 1 Substance use: never Substance use type: does not use Lack of Transportation: No Lack of Food: Never True Current Housing: I Have Housing Concerned About Future Housing: No Difficulty Paying Gas/Electric Bills: No Difficulty Paying for Meds: No Currently Unemployed: No Education: High School Diploma/GED Difficulty w/ Childcare or Family Care: No Living arrangements: with family Occupation/Education: occupation 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 There is no relevant family history pertinent to the presenting complaint Exam Narrative: GENERAL: Well-appearing, well-nourished, and in no acute distress. HEAD: Normocephalic EYES: PERRLA, conjunctivae clear ENT: Nares clear. Mucous membranes moist. TM pearly flores with sharp light reflex bilaterally; no tragal tenderness. Oropharynx not erythematous without lesions. Tonsils not enlarged and without exudate, no drooling, no hoarseness, no trismus, uvula midline. NECK: Supple. No lymphadenopathy CHEST: Clear to auscultation, breath sounds equal. No wheezing, rhonchi, rales, or stridor. No respiratory distress, speaks in full sentences. HEART: Regular rate and rhythm. No murmur heard. SKIN: Warm, dry, no rash. NEURO: Alert and oriented x3. PSYCH: Normal mood and affect Course Course Emergency Course: Patient is aware of diagnosis, understands and agrees to treatment plan. Anticipatory guidance given. Patient agrees to follow-up as directed and is aware of reasons to seek care at the emergency department. Portions of this record may have been created with voice recognition software Level of Care: [facility] Visit MDM Differential Diagnosis Differential Diagnosis: I evaluated this patient in the [facility]. History is obtained from patient who is an independent historian and physical exam was performed.? Available medical records were reviewed. ? Exam findings and relevant testing show no acute concerns or changes; patient is non-toxic appearing and is in no distress. ? Differential diagnosis considered: Workman virus, strep pharyngitis, allergic rhinitis, upper respiratory tract infection, sinusitis, rhinosinusitis, nasopharyngitis. viral pharyngitis, otitis media, otitis externa, pneumonia, bronchitis, viral cough syndrome, viral syndrome, and influenza. Differential diagnosis and treatment plan were discussed with the patient. Patient agrees with discussion and after shared medical decision making agrees with plan of care. All questions were answered to the patient's satisfaction. Patient is appropriate for outpatient treatment and follow-up. Discharge Plan Discharge Clinical Impression: Influenza A Patient Disposition: Home Condition: Stable Instructions: Influenza (ED) Additional Instructions: -Take strict precautions to prevent the spread of your virus. Be diligent about covering your cough (even when you are alone) and washing your hands frequently. -You may contagious until you have been symptom and/or fever free for 24 hours without fever reducing medicine -Alternate Ibuprofen and Tylenol for pain and fever relief (per package directions) -Some Cough medicines may make you drowsy, do not take it if you have to make important decisions, drive, or work. -Drink plenty of fluid - drink fluid with electrolytes such as Gatorade or other oral re-hydration solution. Avoid caffeine, which can make dehydration worse. -Get plenty of rest to help your body heal. -Use a cool mist humidifier for chest and nasal congestion. -Eat RAW honey or use cough drops to ease throat discomfort -Do not smoke or expose children to secondhand smoke -Wash your hands frequently. -Please follow-up with your primary care doctor in the next 1-2 days if your symptoms do not improve. -If you have any worsening of symptoms or any other concerns please go to the ED immediately. -Please take medications as prescribed and continue taking your home medications as usual. Patient Language: Czech Prescriptions: New promethazine-DM 6.25-15 mg/5 mL syrup 5 ml PO Q4-6H PRN (Reason: cough) Qty: 120 0RF oseltamivir 75 mg capsule 75 mg PO BID 5 Days Qty: 10 0RF No Action Calcium 600 with Vitamin D3 600 mg-10 mcg (400 unit) tablet,chewable PO cyclobenzaprine 10 mg tablet 10 mg PO TID hydroxychloroquine [Plaquenil] 200 mg tablet 200 mg PO DAILY trazodone 50 mg tablet 50 mg PO QHS Qty: 90 1RF pantoprazole 40 mg tablet,delayed release (DR/EC) 40 mg PO QAM Qty: 90 3RF Follow-up/Referrals: Cynthia Cazares APRN [Primary Care Provider, Family Practice] Stand Alone Forms: Work/School Release IP Time of Disposition: 10:54
[2025-07-16 10:49] LABS: EDCOVIDSCREEN Negative (Negative); EDINFLUASCREEN Positive (Negative); EDINFLUBSCREEN Negative (Negative)
== END 2025-07-16 11:10 | disposition home or self-care (01) ==
PROVIDERS: Emergency Provider Nurse Practitioner; PCP Nurse Practitioner Family
DX: J10.1 Influenza due to other identified influenza virus with other respiratory manifestations (principal); Z20.822 Contact with and (suspected) exposure to COVID-19; M89.9 Disorder of bone, unspecified; K21.9 Gastro-esophageal reflux disease without esophagitis; K58.9 Irritable bowel syndrome, unspecified; F41.9 Anxiety disorder, unspecified
CPT/HCPCS: 87426; 87804; 99213; G0463